=== PATIENT | male | born 1955 | race Caucasian/White ===

== ENCOUNTER → 2018-02-14 10:28 | Outpatient (CLI) | payer SELFPAY | PROVIDERS: PCP Family Medicine; Visit Provider Nurse Practitioner Family | DX: Z02.4 Encounter for examination for driving license (principal) ==

== ENCOUNTER → 2019-01-30 10:10 | Outpatient (CLI) | payer SELFPAY ==
[2019-01-30 11:12] LABS: Apearance,Urine Clear (Clear); Color,Urine Yellow (Yellow)
[2019-01-30 11:13] LABS: Bilirubin,Urine Negative (Negative); Blood, Urine Negative (Negative); Glucose,Urine (UA) Negative (Negative); Ketones,Urine Negative (Negative); PH,Urine 7.5 (5.0-8.5); Protein,Urine Negative (Negative); UTC Leukocyte Esterase,Urine Negative (Negative); UTC Nitrate,Urine Negative (Negative); Urobilinogen,Urine 0.2 EU/dl (0.2)
== END ==
PROVIDERS: PCP Family Medicine; Visit Provider Nurse Practitioner Family
DX: Z02.4 Encounter for examination for driving license (principal)
CPT/HCPCS: 81003

== ENCOUNTER → 2020-02-16 13:31 | Outpatient (CLI) | payer SELFPAY | PROVIDERS: PCP Family Medicine; Visit Provider Nurse Practitioner Family | DX: Z02.4 Encounter for examination for driving license (principal) ==

== ENCOUNTER → 2020-03-16 11:30 | Outpatient (CLI) | payer MEDICARE, OTHER, SELFPAY ==
--- NOTE | 2020-03-16 11:39 | XR_ITS ---
PROCEDURE: XR CHEST 2V CLINICAL HISTORY: HTN COMPARISON: CR CXR1 CHEST-PORTABLE from 04/24/2015 FINDINGS: The cardiomediastinal silhouette and pulmonary vascularity are within normal limits. The lungs are clear without infiltrates, suspicious nodules, or pleural effusions. No acute bony abnormalities. IMPRESSION: No acute findings. Dictated by: Chris Alas MD 03/16/2020 12:43 Chris Alas MD in [place] 03/16/2020 12:43
== END ==
PROVIDERS: PCP Family Medicine; Visit Provider Family Medicine
DX: Z01.818 Encounter for other preprocedural examination (principal)
CPT/HCPCS: 71046

== ENCOUNTER → 2020-07-09 11:14 | Outpatient (CLI) | payer MEDICARE, OTHER, SELFPAY ==
--- NOTE | 2020-07-09 11:24 | XR_ITS ---
PROCEDURE: XR KNEE RT 3V CLINICAL INDICATION: RT KNEE PAIN, POST KNEE REPLACEMENT COMPARISON: CR [id number] KNEE-4 OR 5 VIEWS-RT from 03/22/2016 DX [id number] KNEE-4 OR 5 VIEWS-RT from 02/06/2017 CR [id number] XR knee RT 3V from 02/05/2018 FINDINGS: Status post total knee replacement with good alignment. No evidence of orthopedic complication. No fracture or dislocation. Other findings:None. IMPRESSION: Good alignment status post total knee replacement Dictated by: Chris Alas MD 07/09/2020 12:59 Chris Alas MD in [place] 07/09/2020 12:59
--- NOTE | 2020-07-09 11:24 | XR_ITS ---
PROCEDURE: XR FEMUR RT 2V CLINICAL INDICATION: RT LEG PAIN COMPARISON: DX [id number] KNEE-4 OR 5 VIEWS-RT from 02/06/2017 FINDINGS: No fracture or dislocation. No lytic or blastic change. There is normal mineralization. There are moderate osteoarthritic changes of the right hip with loss of joint space superiorly and osteophyte formation of the acetabulum. There is mild osteosclerosis of the acetabular roof and femoral head. Other findings:A linear metallic density is present within the soft tissues in the medial and anterior aspect of the mid thigh. This measures approximately 16 mm. There has been a prior total knee prosthesis placement. IMPRESSION: Moderate to severe osteoarthritic changes of the right hip. Linear metallic foreign body in the mid and anterior aspect of the thigh medially Dictated by: Chris Alas MD 07/09/2020 12:57 Chris Alas MD in [place] 07/09/2020 12:57
== END ==
PROVIDERS: PCP Nurse Practitioner Family; Visit Provider Nurse Practitioner Family
DX: M79.604 Pain in right leg (principal); M25.561 Pain in right knee; Z96.651 Presence of right artificial knee joint
CPT/HCPCS: 73552; 73562

== ENCOUNTER → 2020-07-20 12:40 | Outpatient (CLI) | payer MEDICARE, OTHER, SELFPAY ==
--- NOTE | 2020-07-20 12:42 | MR_ITS ---
PROCEDURE: MR LUMBAR SPINE WO CON CLINICAL INDICATION: LUMBAR PAIN Intermittent lbp. Numbness and tingling down lt leg. Intermittent pain on lateral aspect of rt leg. Prior MRI 04/06/16. 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 3-D MIP and myelographic images are also rendered and reviewed FINDINGS: There is normal alignment. The spinal cord ends at the T12 level. T11-T12: Mild degenerative disc disease. T12-L1: Unremarkable. L1-L2: Unremarkable. L2-L3: Unremarkable. L3-L4: There is a medium-sized broad-based central left paracentral disc protrusion/herniation with mild superior extrusion. This is displacing the left L4 nerve root posteriorly and resulting in left lateral recess narrowing. Bulging disc is also present at this level with mild right and moderate left foraminal narrowing. The disc is also abutting the anterior medial aspect of the right L4 nerve root. L4-5: Mild bulging disc with mild facet and ligamentum hypertrophy. The disc does abut the anterior aspect of both L5 nerve roots without displacement. There is mild bilateral foraminal narrowing. Not significantly changed. L5-S1: Bulging disc eccentric toward the right with facet and ligamentum hypertrophy resulting in bilateral foraminal narrowing. 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 Not significantly changed. IMPRESSION: 1. L3-L4: There is a medium-sized broad-based central left paracentral disc protrusion/herniation with mild superior extrusion. This has developed since the previous exam. This is displacing the left L4 nerve root posteriorly and resulting in left lateral recess narrowing. Bulging disc is also present at this level with mild right and moderate left foraminal narrowing. The disc is also abutting the anterior medial aspect of the right L4 nerve root. 2. L4-5: Mild bulging disc with mild facet and ligamentum hypertrophy. The disc does abut the anterior aspect of both L5 nerve roots without displacement. There is mild bilateral foraminal narrowing. Not significantly changed. 3. L5-S1: Bulging disc eccentric toward the right with facet and ligamentum hypertrophy resulting in bilateral foraminal narrowing. 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 Not significantly changed Dictated by: Chris Alas MD 07/22/2020 10:34 Chris Alas MD in [place] 07/22/2020 10:34
== END ==
PROVIDERS: PCP Family Medicine; Visit Provider Orthopaedic Surgery
DX: M54.5 Low back pain (principal)
CPT/HCPCS: 72148; 76376

== ENCOUNTER 2020-08-16 10:00 | Outpatient (RCR) | payer MEDICARE, OTHER, SELFPAY | END 2020-09-16 13:00 | disposition home or self-care (01) | LOC: PT.CARL 10:00 | PROVIDERS: PCP Family Medicine; Visit Provider Orthopaedic Surgery | DX: M48.061 Spinal stenosis, lumbar region without neurogenic claudication (principal) | CPT/HCPCS: 97012; 97110; 97140; 97163 ==

== ENCOUNTER → 2020-12-07 14:57 | Outpatient (CLI) | payer MEDICARE, OTHER, SELFPAY ==
--- NOTE | 2020-12-07 14:59 | CT_ITS ---
PROCEDURE: CT HIP RT WO CON CLINICAL HISTORY: RT HIP PAIN COMPARISON: CT ABDPELW/O CT ABD PELVIS W/O CONTRAST from 06/21/2016 CR XR FEMUR RT 2V from 07/09/2020 TECHNIQUE: Axial images obtained with sagittal and coronal reformats. All CT scans at the facility use one or more dose reduction, viz: automated exposure control, ma/kV adjustment per patient size (including targeted exams where dose is matched to indication, i.e. head), or iterative reconstruction technique. FINDINGS: There are severe osteoarthritic changes of the right hip with subchondral cystic changes of the acetabular roof and the femoral head superiorly. There is minimal depression of the superior cortex of a prominent geode in the femoral head which measures 1.3 cm. Lateral osteophyte is noted at the acetabular rim. Osteophytes are also present at the femoral head/neck junction. There is minimal lateral subluxation of the femoral head. No acute femoral neck fracture apparent. No blastic lesions evident. Anterior bridging osteophytes are present at the right SI joint with fusion of the right SI joint along the anterior cortex. Incidental note is made of diverticulosis of the sigmoid colon IMPRESSION: Severe osteoarthritis of the right hip as described above with subchondral cystic changes Dictated by: Chris Alas MD 12/08/2020 10:23 Chris Alas MD in [place] 12/08/2020 10:23
== END ==
PROVIDERS: PCP Family Medicine; Visit Provider Family Medicine
DX: M25.551 Pain in right hip (principal)
CPT/HCPCS: 73700

== ENCOUNTER → 2021-03-24 13:19 | Outpatient (CLI) | payer MEDICARE, OTHER, SELFPAY | PROVIDERS: PCP Family Medicine; Visit Provider Nurse Practitioner Family | DX: Z02.4 Encounter for examination for driving license (principal) ==

== ENCOUNTER → 2021-04-21 09:25 | Outpatient (CLI) | payer MEDICARE, OTHER, SELFPAY ==
--- NOTE | 2021-04-21 09:29 | XR_ITS ---
FINAL REPORT CLINICAL HISTORY: hip pain, right hip pain -- 6 months or more COMPARISON: July 09, 2020 FINDINGS: Right hip with pelvis Three views were obtained. There is no acute fracture or dislocation. There are severe degenerative changes of the right hip with multiple subchondral cysts that have significantly progressed. There is chronic deformity of the right acetabulum with a possible chronic fracture superiorly. There is moderate degenerative change of the left hip. There is no acute soft tissue abnormality. IMPRESSION: Severe right hip degenerative change, significantly progressed. Chronic deformity of the right acetabulum with a possible chronic superior acetabular fracture. Reviewed, Interpreted and Dictated by Loco Chung III, MD Transcribed by Onesimo Owens Authenticated by Loco Chung III, MD on 04/21/2021 11:00:31 AM [facility]
[2021-04-21 12:08] LABS: Basophils # 0.2 K/mm3 (0-0.2); Basophils % 2.1 % (0.1-2.0); Eosinophils # 0.1 K/mm3 (0.0-0.4); Eosinophils % 1.9 % (0.1-12.0); Hematocrit 46.9 % (42.0-52.0); Hemoglobin 14.6 g/dL (14.1-18.0); Lymphocytes # 1.8 K/mm3 (0.7-4.5); Lymphocytes % 25.4 % (10-50); Mean Corpuscular HGB Conc 31.1 g/dL (31.8-35.4); Mean Corpuscular Hemoglobin 27.7 pg (27.0-31.2); Mean Corpuscular Volume 89.1 fl (80-94); Mean Platelet Volume 6.9 fl (7.4-10.4); Monocytes # 0.3 K/mm3 (0.1-1.0); Neutrophils # 4.8 K/mm3 (1.8-7.8); Neutrophils % 66.5 % (37.0-80.0); Platelet Count 323 K/mm3 (142-424); Red Blood Count 5.27 M/mm3 (4.60-6.20); Red Cell Distribution Width 14.3 % (11.5-17.5); White Blood Count 7.2 K/mm3 (4.8-10.8)
[2021-04-21 12:48] LABS: Erythrocyte Sedimentation Rate 15 mm/hr (0-20)
[2021-04-21 13:49] LABS: C-Reactive Protein 2.2 mg/L (0-4)
== END ==
PROVIDERS: PCP Family Medicine; Visit Provider Orthopaedic Surgery
DX: M25.561 Pain in right knee (principal)
CPT/HCPCS: 73502

== ENCOUNTER → 2021-04-21 11:51 | Outpatient (CLI) | payer MEDICARE, OTHER, SELFPAY ==
--- NOTE | 2021-04-21 11:58 | XR_ITS ---
FINAL REPORT CLINICAL HISTORY: 4 view WB sx 04/08/20 COMPARISON: 07/09/2020 FINDINGS: RIGHT KNEE Six views demonstrate no acute fracture or dislocation. There are postoperative changes from total knee arthroplasty. Inferior soft tissue calcifications are identified. IMPRESSION: Postsurgical change without acute process. Reviewed, Interpreted and Dictated by oLco Chung III, MD Transcribed by Ro Rebollar Authenticated by Loco Chung III, MD on 04/21/2021 12:47:35 PM [facility]
== END ==
PROVIDERS: PCP Family Medicine; Visit Provider Orthopaedic Surgery
DX: M25.561 Pain in right knee (principal)
CPT/HCPCS: 36415; 73502; 73564; 85025; 85651; 86140

== ENCOUNTER → 2021-05-23 10:30 | Outpatient (CLI) | payer MEDICARE, OTHER, SELFPAY ==
--- NOTE | 2021-05-23 10:43 | XR_ITS ---
FINAL REPORT TECHNIQUE: Chest PA & Lateral CLINICAL HISTORY: PRE-OP for hip sx COMPARISON: March 16, 2020 FINDINGS: 2 views of the chest were performed. The heart size is normal. The mediastinum is within normal limits. There is no acute cardiopulmonary process. There are mild chronic changes in the lung bases. There are no pleural effusions. There is no pneumothorax. The bony thorax appears intact. IMPRESSION: No acute cardiopulmonary process. Reviewed, Interpreted and Dictated by Mayo Smith MD Transcribed by Onesimo Owens Authenticated by Mayo Smith MD on 05/23/2021 01:15:[address] [facility]
== END ==
PROVIDERS: PCP Family Medicine; Visit Provider Nurse Practitioner Family
DX: Z01.818 Encounter for other preprocedural examination (principal)
CPT/HCPCS: 71046

== ENCOUNTER 2021-08-22 11:07 | Emergency (ER) | payer MEDICARE, OTHER, SELFPAY ==
[2021-08-22] VITALS (8 sets, daily range): BP systolic 110–161; BP diastolic 62–82; PULSE 55–66; RESP 16–20; TEMP 36.8–36.9; O2SAT 94–98; BMI 34.8
--- NOTE | 2021-08-22 11:59 | HMH.EDGENADL ---
ED Disposition Clinical Impression: Right hip pain Disposition: Home, Self-Care Condition on Discharge: Good Prescriptions: Lidocaine [Lidocaine 5% patch] 1 patch TP BID 7 Days #14 patch Transmission Status: Pending to [facility] Referrals: Mio Nuñez MD [Primary Care Provider] - - Critical Care Critical Care Time: No Attestation: On 08/22/21, the high probability of a clinically significant, sudden or life threatening deterioration of the following system(s) required my full and direct attention, intervention and personal management. The time I documented below is in addition to time spent performing reported procedures but includes the following listed in this critical care notation. Medical Decision Making - Medical Records Medical records reviewed: Yes: I reviewed the patient's medical records. - Grayson Inquiry Pt receiving controlled substance: No Vital Signs: 08/22/21 11:07 08/22/21 12:01 08/22/21 12:30 Temperature 98.2 F Temperature Source Oral Pulse Rate 58 L 55 L Pulse Rate [Left Radial] 65 Respiratory Rate 18 20 20 Blood Pressure 110/62 125/75 Blood Pressure [Right Arm] 161/72 H Blood Pressure Mean 81 82 Blood Pressure Mean [Right Arm] 101 Blood Pressure Source [Right Arm] Automatic Cuff Blood Pressure Position [Right Arm] Sitting 02 Sat by Pulse Oximetry 95 95 96 Oxygen Delivery Method Room Air 08/22/21 13:00 08/22/21 13:30 08/22/21 14:01 Temperature Temperature Source Pulse Rate 66 59 L 58 L Pulse Rate [Left Radial] Respiratory Rate 18 20 20 Blood Pressure 122/70 133/82 121/72 Blood Pressure [Right Arm] Blood Pressure Mean 87 96 88 Blood Pressure Mean [Right Arm] Blood Pressure Source [Right Arm] Blood Pressure Position [Right Arm] 02 Sat by Pulse Oximetry 95 96 Oxygen Delivery Method 08/22/21 14:30 Temperature Temperature Source Pulse Rate 59 L Pulse Rate [Left Radial] Respiratory Rate 20 Blood Pressure 114/71 Blood Pressure [Right Arm] Blood Pressure Mean 91 Blood Pressure Mean [Right Arm] Blood Pressure Source [Right Arm] Blood Pressure Position [Right Arm] 02 Sat by Pulse Oximetry 94 L Oxygen Delivery Method Orders (Tests/Meds): ED MEDICATIONS Discontinued Medications Generic Name Dose Route Start Last Admin Trade Name Freq PRN Reason Stop Dose Admin Ketorolac Tromethamine 15 mg 08/22/21 11:59 08/22/21 12:36 Ketorolac 30mg/Ml Vial IM 08/22/21 12:00 15 mg ONCE ONE Administration Lidocaine 1 each 08/22/21 11:58 08/22/21 12:36 Lidocaine 5% Transdermal Patch TP 08/22/21 11:59 1 each ONCE ONE Administration ORDERS Category Date Time Status XR hip RT 2-3V w/pelvis Stat Exams 08/22/21 12:56 Taken Medical Decision Narrative: Patient is a 66-year-old male presented to the ED today for evaluation of right thigh and hip pain, some present since of surgery, not worsening, denies fevers, is ambulatory on the hip, low concern for infection given my clinical examination, will obtain x-rays of the right hip, apply lidocaine patch. Patient has had symptomatic improvement after lidocaine patch administration, no symptoms of fever, no tachycardia, no hypotension, no vital signs consistent with sepsis or right hip infection, x-rays with no significant abnormalities detected. Patient able to ambulate, symptomatically improved and lidocaine patch I will prescribe him to take at home as he already has opiate pain medications. Patient otherwise in no acute distress, given return precautions, I have instructed him that is important to follow-up with his operating surgeon if he is still having pain this far out from surgery, they do appear to have been following him closely in clinic. General Adult HPI - General Chief complaint: PAIN Stated complaint: hip replacement 07/08, pain Time Seen by Provider: 08/22/21 11:15 Mode of Arrival: Ambulatory Limitations: No Limitations Descrip
--- NOTE | 2021-08-22 12:56 | XR_ITS ---
FINAL REPORT CLINICAL HISTORY: hip pain right-had right hip replaced in July with [facility]- pt states was doing well and now it feels like it pops out of place COMPARISON: April 21, 2021 FINDINGS: AP and frog leg views of the right hip and an AP pelvis were obtained. There are interval changes from right hip arthroplasty. The hardware appears intact. There is no acute fracture or dislocation. There is degenerative joint disease of the left hip, stable. IMPRESSION: No acute osseous abnormality of the right hip. Interval right hip arthroplasty. Reviewed, Interpreted and Dictated by Nilam Nunez MD Transcribed by Onesimo Owens Authenticated by Nilam Nunez MD on 08/22/2021 03:14:58 PM [facility]
== END 2021-08-22 15:21 | disposition home or self-care (01) ==
PROVIDERS: Emergency Provider Student in an Organized Health Care Education/Training Program; PCP Family Medicine
DX: M25.551 Pain in right hip (principal); I10 Essential (primary) hypertension; E78.5 Hyperlipidemia, unspecified
CPT/HCPCS: 73502; 96372; 99283

== ENCOUNTER → 2021-12-28 10:55 | Outpatient (POV) | payer MEDICARE, OTHER, SELFPAY ==
[2021-12-28 11:26] VITALS: BP 166/80; PULSE 71; RESP 18; TEMP 36.8; O2SAT 95; BMI 34.8
--- NOTE | 2021-12-28 16:52 | EXP.PAIN.OV ---
HPI Data of Consult Patient: new to practice Consult date: 12/28/21 Requesting Physician: Lissy Ashraf APRN Primary Care Provider: Mio Nuñez MD Consult Narrative Reason for consult: Low back pain, right leg pain History of present illness: Mr. Valdivia is a 66 year old male who presents today as a new patient. Today he rates his pain a 5 out of 10. He states his pain is all in his low back with radiating symptoms only to the right leg. Patient denies any trauma but states this has been going on since his right hip replacement in July and it has worsened since. He describes this as a aching, sharp, throbbing sensation that often has shooting pain at random times. Patient states he did have back injections previously at [facility] however he is unsure specifically what injections they were. He is also had right knee injections prior to his right knee replacement. These injections did provide improvement of his symptoms at that time. He also was having laser therapy for his hip that did help however his insurance would not cover these and he had to drive to [place] every time. Patient has been on diclofenac twice a day and states this does help some of his pain symptoms. He also has tried [id number] Tylenol. Patient has also been managed with muscle relaxers in the past that he only took 1 a day. Patient is prescribed tramadol 50 mg twice a day by Dr. Montgomery's office. Patient denies any side effects from this medication and states this medication does help some of his pain symptoms. Patient is also tried ice and heat with short-term relief. Patient has been to physical therapy that did help some with his hip pain following surgery however he continues to have pain in his low back. He does see a chiropractor that previously he was going to twice a week however now it is once a week and this does help provide additional improvement. Patient states his sleep is sometimes affected with his pain symptoms due to the random shooting pains that wake him up in the middle of the night. He is interested in any additional therapy we can provide to give relief. His Grayson is [phone]. It has been reviewed and appropriate. CC: Lissy Ashraf APRN PFSH PFSH Social History Smoking Status: Unknown if ever smoked alcohol intake: never current occupational status: retired Travel in the last 8 weeks: None Review of Systems Review of Systems Review of systems:: pertinent systems reviewed and negative unless documented below Review of systems (narrative): Review of Systems: General: No recent weight changes, no fever, no sleep disturbances Respiratory: No cough, no shortness of air, no recurring pulmonary infections Cardiovascular/peripheral vascular: No chest pain, no palpitations, no edema, no shortness of breath Gastrointestinal: No new onset incontinence, normal bowel movements reported Genitourinary: No new onset incontinence Musculoskeletal: Low back pain, right leg pain Psychiatric: [Normal mood/affect] Neurological: [Denies weakness in extremities], [denies balance issues] Meds Home Medications and Allergies Home Medications Medication Instructions Recorded Confirmed Type amlodipine 10 mg tablet 10 mg PO DAILY HTN 08/05/17 12/28/21 History celecoxib 200 mg capsule 200 mg PO DAILY Arthritis 08/05/17 12/28/21 History losartan 25 mg tablet 25 mg PO DAILY HTN 08/05/17 12/28/21 History potassium citrate m-hyd(bulk) 1,080 mg PO QID Kidney stones 08/05/17 12/28/21 History colchicine 0.6 mg tablet 0.6 mg PO DIRECTED GOUT 12/28/21 12/28/21 History diclofenac sodium 1 % topical gel 1 applicatio TP QID Pain 12/28/21 12/28/21 History lidocaine 5 % topical patch 1 patch TP BID Pain 12/28/21 12/28/21 History New Prescriptions to Start Prescriptions: Allergies Allergy/AdvReac Type Severity Reaction Status Date / Time No Known Allergies Allergy Verified 04/21/21 11:47 Objective Vital signs: Temp
== END ==
PROVIDERS: PCP Family Medicine; Visit Provider Nurse Practitioner Family
DX: M51.16 Intervertebral disc disorders with radiculopathy, lumbar region (principal); M47.26 Other spondylosis with radiculopathy, lumbar region
CPT/HCPCS: 99202; G0463

== ENCOUNTER 2022-01-10 08:48 | Day surgery (SDC) | payer MEDICARE, OTHER, SELFPAY ==
[2022-01-10 09:00] VITALS: BP 130/78; PULSE 70; RESP 18; TEMP 36.7; O2SAT 97; BMI 34.8
[2022-01-10 09:27] VITALS: BP 171/78; PULSE 67; RESP 18; O2SAT 99
[2022-01-10 09:28] VITALS: BP 158/89; PULSE 64; RESP 18; O2SAT 99
[2022-01-10 09:32] VITALS: BP 149/77; PULSE 66; RESP 20; O2SAT 94
--- NOTE | 2022-01-10 09:34 | EXP.PAIN.PRO ---
Procedure Date: 01/10/22 Time: 09:34 Anesthesiologist:: Daniel Rosen CRNA Complications:: None Pre-procedure Diagnosis:: Degenerative disc disease bar spine multilevels. Lumbar radiculopathy symptoms Post-procedure Diagnosis:: Same. Indications for Procedure:: Very pleasant 66-year-old male that comes our clinic today for a lumbar epidural steroid injection at the L4-5 level. Patient describes his low back pain as constant, dull, aching. Patient also states he is having bilateral hip and leg radicular symptoms. All of his symptoms intensify with standing for any length of time. Patient has had epidural steroid injections in the past at a different facility. Procedure Details:: Procedure: Lumbar epidural steroid injection under fluoroscopy Informed consent was obtained and the risks and benefits of the procedure were explained to the patient. The patient was taken to the procedure room and noninvasive monitors placed, including noninvasive blood pressure cuff and pulse oximeter. The back was viewed using C-arm Fluoroscopy and prepped using Betadine as a cleansing solution and the L4-L5 interspace was palpated. Skin and subcutaneous tissues were anesthetized using lidocaine 1.5% and a 25-gauge needle. After this, an 18-gauge Touhy epidural needle was placed into the L4-L5 interspace and advanced using fluoroscopic guidance and loss of resistance to air until the epidural space was encountered. After confirmation of needle placement in the epidural space, with dye, a solution containing lidocaine 1.5%, 4 mL and Depo-Medrol 80 mg were incrementally injected into the lumbar epidural space. The patient tolerated the procedure well with no complications. The patient was observed in the Pain Clinic and then discharged home neurologically intact. Plan and Disposition:: Patient was discharged without incident
== END 2022-01-10 09:33 | disposition home or self-care (01) ==
PROVIDERS: PCP Family Medicine; Visit Provider Nurse Anesthetist, Certified Registered
DX: M51.16 Intervertebral disc disorders with radiculopathy, lumbar region (principal)
CPT/HCPCS: 62323; J1040

== ENCOUNTER → 2022-03-30 11:39 | Outpatient (POV) | payer MEDICARE, OTHER, SELFPAY ==
[2022-03-30 11:54] VITALS: BP 138/80; PULSE 72; RESP 18; O2SAT 99; BMI 35.4
--- NOTE | 2022-03-30 12:42 | EXP.PAIN.SOA ---
[facility] Pain Management SOAP Note Subjective:: Patient is a pleasant 66-year-old male who presents today for follow-up. We are currently treating the patient for degenerative disc disease of lumbar spine with lumbar radiculopathy symptoms, low back pain, facet hypertrophy lumbar spine. Patient previously had a lumbar epidural steroid injection at L4-L5 on 01/10/2022. Patient states that he did have approximately 60 to 70% relief at least and lasting approximately 2 months. 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 Today he rates his pain a 4 out of 10. Patient denies any new trauma or injury. Patient denies any change to location or type of pain he experiences. Patient does state this is a aching, sharp, throbbing sensation that is worse with increased activity. Patient does state this interferes with his ability to perform activities of daily living. Patient does use [id number] Tylenol as needed to help with his pain symptoms along with heat and ice. Patient has been going to a chiropractor weekly and states this does provide additional improvement. His Grayson is [phone]. It is been reviewed and approved. Review of Systems: General: No recent weight changes, no fever, no sleep disturbances Respiratory: No cough, no shortness of air, no recurring pulmonary infections Cardiovascular/peripheral vascular: No chest pain, no palpitations, no edema, no shortness of breath Gastrointestinal: No new onset incontinence, normal bowel movements reported Genitourinary: No new onset incontinence Musculoskeletal: Low back pain Psychiatric: [Normal mood/affect] Neurological: [Denies weakness in extremities], [denies balance issues] Objective:: Physical Exam: General: Alert and oriented x3, no acute distress, pleasant and cooperative Lungs: Respirations even and unlabored, symmetrical chest expansion Eyes: PERRL Musculoskeletal: Flexion and extension of lumbar [spine] somewhat guarded secondary to pain, [antalgic gait noted] Neurological: Speech clear, no gross sensory deficit Assessment:: Degenerative disc disease of lumbar spine with lumbar radiculopathy symptoms, low back pain, facet hypertrophic lumbar spine Plan:: Patient is experiencing significant pain in his low back with radiating symptoms into his lower extremities. Patient did have limited range of motion of his lumbar spine during today's visit. I have discussed with the patient that he may benefit from repeat lumbar epidural steroid injections. Patient previously had 1 that provided 70% relief lasting approximately 2 months. Risk and benefits were discussed with the patient regarding this procedure and he would like to proceed forward with this plan of care. Patient is not on any blood thinners. We will schedule him for a LESI L4-L5. Patient has been instructed to contact the clinic with any concerns before the next appointment. Dr. Blancas has reviewed this note and agrees with this plan of care. This note was dictated using voice recognition software and make contain errors or omissions. [facility] Disclaimer: The information contained in this section may have been updated after the patient was seen, as this information can be updated by other users. Medical History (Updated 01/10/22 @ 09:05 by Caitlyn Schmid RN) Kidney stone Surgical History (Updated 01/10/22 @ 09:05 by Caitlyn Schmid RN) History of cholecystectomy History of total right hip replacement History of total right knee replacement Social History (Updated 01/10/22 @ 09:05 by Caitlyn Schmid RN) Smoking Status: Unknown if ever smoked alcohol intake: never current occupational status: retired Travel in the last 8 weeks: None
== END ==
PROVIDERS: PCP Family Medicine; Visit Provider Nurse Practitioner Family
DX: M51.16 Intervertebral disc disorders with radiculopathy, lumbar region (principal); Z79.899 Other long term (current) drug therapy
CPT/HCPCS: 99212; G0463

== ENCOUNTER → 2022-04-06 09:37 | Outpatient (CLI) | payer MEDICARE, OTHER, SELFPAY | PROVIDERS: PCP Family Medicine; Visit Provider Nurse Practitioner Family | DX: Z02.4 Encounter for examination for driving license (principal) ==

== ENCOUNTER 2022-04-11 09:05 | Day surgery (SDC) | payer MEDICARE, OTHER, SELFPAY ==
[2022-04-11 09:22] VITALS: BP 173/79; PULSE 70; RESP 18; TEMP 36.4; O2SAT 92; BMI 36.9
[2022-04-11 09:27] VITALS: BP 169/80; PULSE 68; RESP 18; O2SAT 98
[2022-04-11 09:28] VITALS: BP 169/80; PULSE 68; RESP 18; O2SAT 98
[2022-04-11 09:35] VITALS: BP 167/74; PULSE 73; RESP 18; O2SAT 92
--- NOTE | 2022-04-11 09:36 | EXP.PAIN.PRO ---
Procedure Date: 04/11/22 Time: 09:30 Anesthesiologist:: Daniel Rosen CRNA Complications:: None Pre-procedure Diagnosis:: Degenerative disc disease lumbar spine multilevels. Lumbar radiculopathy. Post-procedure Diagnosis:: Same. Indications for Procedure:: Patient is a very pleasant 58-year-old male that comes to our clinic today for lumbar epidural steroid injection. This will be a therapeutic lumbar epidural steroid injection. Patient has these several times per year with significant improvement terms of his overall activity level. An occasional lumbar epidural steroid injection decreases his low back pain as well as bilateral hip and leg radicular symptoms significantly. Today he rates his pain 5/10. Procedure Details:: Procedure: Lumbar epidural steroid injection under fluoroscopy Informed consent was obtained and the risks and benefits of the procedure were explained to the patient. The patient was taken to the procedure room and noninvasive monitors placed, including noninvasive blood pressure cuff and pulse oximeter. The back was viewed using C-arm Fluoroscopy and prepped using Chloraprep as a cleansing solution and the L4-L5 interspace was palpated. Skin and subcutaneous tissues were anesthetized using lidocaine 1.5% and a 25-gauge needle. After this, an 18-gauge Touhy epidural needle was placed into the L4-L5 interspace and advanced using fluoroscopic guidance and loss of resistance to air until the epidural space was encountered. After confirmation of needle placement in the epidural space, with dye, a solution containing normal saline, 3 mL and Depo-Medrol 80 mg were incrementally injected into the lumbar epidural space. The patient tolerated the procedure well with no complications. The patient was observed in the Pain Clinic and then discharged home neurologically intact. Plan and Disposition:: Patient was discharged without incident.
== END 2022-04-11 09:35 | disposition home or self-care (01) ==
PROVIDERS: PCP Family Medicine; Visit Provider Nurse Anesthetist, Certified Registered
DX: M51.16 Intervertebral disc disorders with radiculopathy, lumbar region (principal)
CPT/HCPCS: 62323; J1040

== ENCOUNTER → 2022-04-24 11:14 | Outpatient (POV) | payer MEDICARE, OTHER, SELFPAY ==
--- NOTE | 2022-04-24 11:21 | EXP.PAIN.SOA ---
[facility] Pain Management SOAP Note Subjective:: Patient is a pleasant 66-year-old male who presents today for follow-up of lumbar epidural steroid injection at L4-L5 on 04/11/2022. We are currently treating the patient for degenerative disc disease of lumbar spine with lumbar radiculopathy symptoms. Patient states he has had at least 70% improvement following this injection and states that it is continuing to provide additional relief. Patient rates his pain today a 2 out of 10. Patient denies any new trauma or injury. Patient denies any change to location or type of pain he experiences. Patient states in times of increased activity he will occasionally have worsening pain symptoms however he states with rest this does improve. Patient is not currently on any scheduled medications. His Grayson is [id number]. Its been reviewed and appropriate. Review of Systems: General: No recent weight changes, no fever, no sleep disturbances Respiratory: No cough, no shortness of air, no recurring pulmonary infections Cardiovascular/peripheral vascular: No chest pain, no palpitations, no edema, no shortness of breath Gastrointestinal: No new onset incontinence, normal bowel movements reported Genitourinary: No new onset incontinence Musculoskeletal: Low back pain Psychiatric: [Normal mood/affect] Neurological: [Denies weakness in extremities], [denies balance issues] Objective:: Physical Exam: General: Alert and oriented x3, no acute distress, pleasant and cooperative Lungs: Respirations even and unlabored, symmetrical chest expansion Eyes: PERRL Musculoskeletal: Flexion and extension of lumbar [spine] somewhat guarded secondary to pain, [antalgic gait noted] Neurological: Speech clear, no gross sensory deficit ORT score updated with low risk Assessment:: Degenerative disc disease of lumbar spine with lumbar radiculopathy symptoms Plan:: Patient has had significant improvement of his pain symptoms in his low back and radiating into his legs following his lumbar epidural steroid injection. At this time the patient does not need any additional injective therapy. Patient will return to clinic in 1 month for reevaluation of symptoms and follow-up. Patient has been instructed to contact the clinic with any concerns before the next appointment. Dr. Blancas has reviewed this note and agrees with this plan of care. This note was dictated using voice recognition software and make contain errors or omissions. [facility] Disclaimer: The information contained in this section may have been updated after the patient was seen, as this information can be updated by other users. Medical History Kidney stone Surgical History History of cholecystectomy History of total right hip replacement History of total right knee replacement Family History (Updated 04/11/22 @ 09:22 by Breanna Cabral RN) Other No significant family history Social History Smoking Status: Unknown if ever smoked alcohol intake: never current occupational status: retired Travel in the last 8 weeks: None
[2022-04-24 11:25] VITALS: BP 143/75; PULSE 71; RESP 18; O2SAT 97; BMI 34.8
== END ==
PROVIDERS: PCP Thoracic Surgery (Cardiothoracic Vascular Surgery); Visit Provider Nurse Practitioner Family
DX: M51.16 Intervertebral disc disorders with radiculopathy, lumbar region (principal)
CPT/HCPCS: 99212; G0463

== ENCOUNTER → 2022-05-29 09:40 | Outpatient (POV) | payer MEDICARE, OTHER, SELFPAY ==
--- NOTE | 2022-05-29 10:22 | EXP.PAIN.SOA ---
[facility] Pain Management SOAP Note Subjective:: Patient is a pleasant 66-year-old male who presents today for follow-up. We are currently treating the patient for degenerative disc disease of lumbar spine with lumbar radiculopathy symptoms. Today the patient rates his pain a 2 out of 10. Patient denies any new trauma or injury. Patient denies any change location or type of pain he experiences. Patient previously had a lumbar epidural steroid injection at L4-L5 on 04/11/2022. Patient did have approximately 70% relief following this injection and feels like it may still be providing additional relief. Patient does state that he has trouble with his left knee and hip as well. Patient states that he does know that he needs a hip replacement however he did not have the best success with the last hip replacement that he had and so he does have hesitation for proceeding forward with this surgery. Patient is not on any scheduled medications at this time. He states he does occasionally take Tylenol 650 mg 2 tablets in the morning and occasionally will repeat this at night however this is more frequently when he is having significant pain. His Grayson is [phone]. Its been reviewed and appropriate. Review of Systems: General: No recent weight changes, no fever, no sleep disturbances Respiratory: No cough, no shortness of air, no recurring pulmonary infections Cardiovascular/peripheral vascular: No chest pain, no palpitations, no edema, no shortness of breath Gastrointestinal: No new onset incontinence, normal bowel movements reported Genitourinary: No new onset incontinence Musculoskeletal: Low back pain, left knee pain, hip pain Psychiatric: [Normal mood/affect] Neurological: [Denies weakness in extremities], [denies balance issues] Objective:: Physical Exam: General: Alert and oriented x3, no acute distress, pleasant and cooperative Lungs: Respirations even and unlabored, symmetrical chest expansion Eyes: PERRL Musculoskeletal: Flexion and extension of lumbar [spine] somewhat guarded secondary to pain, [antalgic gait noted] Neurological: Speech clear, no gross sensory deficit Assessment:: Degenerative disc disease of lumbar spine with lumbar radiculopathy symptoms, left knee pain, hip pain Plan:: Patient continues to do well at this time from his last lumbar epidural steroid injection and does not require any additional injective therapy. I have discussed with the patient that he may benefit from compounding cream however at this time he would like to wait. Patient will return to clinic in 3 months for reevaluation of symptoms and plan of care. Patient has been instructed to contact the clinic with any concerns before the next appointment. Dr. Blancas has reviewed this note and agrees with this plan of care. This note was dictated using voice recognition software and make contain errors or omissions. [facility] Disclaimer: The information contained in this section may have been updated after the patient was seen, as this information can be updated by other users. Medical History Kidney stone Surgical History (Reviewed 04/11/22 @ :22 by Breanna Cabral RN) History of cholecystectomy History of total right hip replacement History of total right knee replacement Family History (Updated 04/11/22 @ 09:22 by Breanna Cabral RN) Other No significant family history Social History Smoking Status: Unknown if ever smoked alcohol intake: never current occupational status: retired Travel in the last 8 weeks: None
[2022-05-29 10:32] VITALS: BP 136/76; PULSE 70; RESP 18; O2SAT 98; BMI 35.5
== END ==
PROVIDERS: PCP Family Medicine; Visit Provider Nurse Practitioner Family
DX: M51.16 Intervertebral disc disorders with radiculopathy, lumbar region (principal); M25.562 Pain in left knee; M25.559 Pain in unspecified hip
CPT/HCPCS: 99212; G0463

== ENCOUNTER → 2022-08-21 09:51 | Outpatient (POV) | payer MEDICARE, OTHER, SELFPAY ==
--- NOTE | 2022-08-21 10:30 | EXP.PAIN.SOA ---
[facility] Pain Management SOAP Note Subjective:: Patient is a pleasant 67-year-old male who presents today for 3-month follow-up. We are currently treating the patient for degenerative disc disease of lumbar spine with lumbar radiculopathy symptoms. Today he rates his pain a 5 out of 10. Patient denies any new trauma or injury. Patient denies any change location or type of pain he experiences. He does state that he recently over the last month or so he has had worsening pain in his low back along the left side with radiating symptoms into his left hip and down his foot. He does describe this as an aching, throbbing sensation with numbness. He states the pain is worse with increased activity. He does state the pain interferes with his ability perform activities of daily living such as cooking and cleaning. Patient denies any symptoms into his right leg. Patient has tried [id number] Tylenol along with heat and ice and topicals with minimal relief. Patient has had lumbar epidurals in the past that did provide upwards of 70% relief. Patient is interested in any additional help we may provide. He is not on any scheduled medications. His Grayson is [phone]. Its been reviewed and appropriate. Review of Systems: General: No recent weight changes, no fever, no sleep disturbances Respiratory: No cough, no shortness of air, no recurring pulmonary infections Cardiovascular/peripheral vascular: No chest pain, no palpitations, no edema, no shortness of breath Gastrointestinal: No new onset incontinence, normal bowel movements reported Genitourinary: No new onset incontinence Musculoskeletal: Low back pain, left hip pain, left foot pain Psychiatric: [Normal mood/affect] Neurological: [Denies weakness in extremities], [denies balance issues] Objective:: Physical Exam: General: Alert and oriented x3, no acute distress, pleasant and cooperative Lungs: Respirations even and unlabored, symmetrical chest expansion Eyes: PERRL Musculoskeletal: Flexion and extension of lumbar [spine] somewhat guarded secondary to pain, [antalgic gait noted] Neurological: Speech clear, no gross sensory deficit FINDINGS: There is normal alignment. The spinal cord ends at the T12 level. T11-T12: Mild degenerative disc disease. T12-L1: Unremarkable. L1-L2: Unremarkable. L2-L3: Unremarkable. L3-L4: There is a medium-sized broad-based central left paracentral disc protrusion/herniation with mild superior extrusion. This is displacing the left L4 nerve root posteriorly and resulting in left lateral recess narrowing. Bulging disc is also present at this level with mild right and moderate left foraminal narrowing. The disc is also abutting the anterior medial aspect of the right L4 nerve root.? L4-5: Mild bulging disc with mild facet and ligamentum hypertrophy. The disc does abut the anterior aspect of both L5 nerve roots without displacement. There is mild bilateral foraminal narrowing. Not significantly changed. L5-S1: Bulging disc eccentric toward the right with facet and ligamentum hypertrophy resulting in bilateral foraminal narrowing. 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 Not significantly changed. IMPRESSION: 1. L3-L4: There is a medium-sized broad-based central left paracentral disc protrusion/herniation with mild superior extrusion. This has developed since the previous exam. This is displacing the left L4 nerve root posteriorly and resulting in left lateral recess narrowing. Bulging disc is also present at this level with mild right and moderate left foraminal narrowing. The disc is also abutting the anterior medial aspect of the right L4 nerve root. 2. L4-5: Mild bulging disc with mild facet and ligamentum hypertrophy. The disc does abut the anterior aspect of both L5 nerve roots without displacement. There is mild bilateral foraminal narrowing. Not significantly changed. 3. L5-S1: Bulging disc eccentric toward the right with facet an
[2022-08-21 11:04] VITALS: BP 156/72; PULSE 69; RESP 18; O2SAT 97; BMI 35.5
== END ==
PROVIDERS: Visit Provider Nurse Practitioner Family
DX: M51.16 Intervertebral disc disorders with radiculopathy, lumbar region (principal)
CPT/HCPCS: 99212; G0463

== ENCOUNTER 2022-08-29 11:40 | Day surgery (SDC) | payer MEDICARE, OTHER, SELFPAY ==
[2022-08-29 11:53] VITALS: BP 148/80; PULSE 81; RESP 20; TEMP 36.5; O2SAT 94; BMI 35.5
[2022-08-29 12:01] VITALS: BP 170/83; PULSE 75; RESP 18; O2SAT 97
[2022-08-29 12:02] VITALS: BP 170/83; PULSE 75; RESP 18; O2SAT 97
[2022-08-29 12:10] VITALS: BP 144/71; PULSE 69; RESP 18; O2SAT 94
--- NOTE | 2022-08-29 12:10 | EXP.PAIN.PRO ---
Procedure Date: 08/29/22 Time: 12:00 Anesthesiologist:: Daniel Rosen CRNA Complications:: None Pre-procedure Diagnosis:: Degenerative disc lumbar spine multilevels. Lumbar radiculopathy. Disc bulge lumbar spine multilevel. Lumbar spondylosis Post-procedure Diagnosis:: Same. Indications for Procedure:: Patient is a very pleasant 67-year-old male that comes our clinic today for left L4-5, L5-S1 transforaminal epidural steroid injection. Patient complains of left low lumbar pain as well as left hip and leg radicular symptoms. Procedure Details:: Details of the procedure were explained to the patient. The patient was taken the procedure room placed in the prone position. The area of the lumbar spine was cleansed using chlorhexidine as a cleansing solution. At this time using fluoroscopy guidance markers were placed on the left lateral border of the L4 and L5 vertebral body. The skin and subcutaneous tissue was anesthetized using 1% lidocaine and 25-gauge needle. At this time using a 22-gauge 3-1/2 inch spinal needle the left upper one third of the L4-5 foramen was accessed. The same was done at the left L5-S1 foramen. Needle positions were confirmed and a lateral view using fluoroscopy and contrast dye. At this time 1 cc of 1% lidocaine +20 mg of Depo-Medrol was injected at each level after negative aspiration. Melrose were removed. Band-Aid applied. Patient tolerated the procedure without difficulty. There are no complications. Plan and Disposition:: Patient was discharged without incident.
== END 2022-08-29 12:10 | disposition home or self-care (01) ==
PROVIDERS: PCP Family Medicine; Visit Provider Nurse Anesthetist, Certified Registered
DX: M51.16 Intervertebral disc disorders with radiculopathy, lumbar region (principal); M47.26 Other spondylosis with radiculopathy, lumbar region
CPT/HCPCS: 64483; 64484; J1030; Q9966

== ENCOUNTER → 2022-09-13 13:24 | Outpatient (POV) | payer MEDICARE, OTHER, SELFPAY ==
--- NOTE | 2022-09-13 13:50 | EXP.PAIN.SOA ---
[facility] Pain Management SOAP Note Subjective:: Patient is a pleasant 67-year-old male who presents today for follow-up of left transforaminal epidural steroid injection L4-L5 and L5-S1 on 08/29/2022. We are currently treating the patient for degenerative disc disease of lumbar spine with lumbar radiculopathy symptoms. Today he rates his pain a 4 out of 10. Patient denies any new trauma or injury. Patient denies any change to location or type of pain he experiences. He does state that he does not feel like this injection worked as well as his previous ones. Patient states he continues to have pain in his low back with radiating symptoms into his left lower extremity. Patient does use [id number] medications with minimal improvement. His Grayson is [phone]. Its been reviewed and appropriate. Review of Systems: General: No recent weight changes, no fever, no sleep disturbances Respiratory: No cough, no shortness of air, no recurring pulmonary infections Cardiovascular/peripheral vascular: No chest pain, no palpitations, no edema, no shortness of breath Gastrointestinal: No new onset incontinence, normal bowel movements reported Genitourinary: No new onset incontinence Musculoskeletal: Low back pain, left leg pain Psychiatric: [Normal mood/affect] Neurological: [Denies weakness in extremities], [denies balance issues] Objective:: Physical Exam: General: Alert and oriented x3, no acute distress, pleasant and cooperative Lungs: Respirations even and unlabored, symmetrical chest expansion Eyes: PERRL Musculoskeletal: Flexion and extension of lumbar [spine] somewhat guarded secondary to pain, [antalgic gait noted] Neurological: Speech clear, no gross sensory deficit Assessment:: Degenerative disc disease of lumbar spine with lumbar radiculopathy symptoms Plan:: Patient continues to have significant pain in his low back with radiating symptoms into his left leg. I have discussed with the patient that he may benefit from a repeat transforaminal epidural however at this time he states it is manageable and he would like to wait. We will follow-up with the patient in 1 month for reevaluation of symptoms and plan of care. Patient has been instructed to contact the clinic with any concerns before the next appointment. Dr. Blancas has reviewed this note and agrees with this plan of care. This note was dictated using voice recognition software and make contain errors or omissions. [facility] Disclaimer: The information contained in this section may have been updated after the patient was seen, as this information can be updated by other users. Medical History Kidney stone Surgical History History of cholecystectomy History of total right hip replacement History of total right knee replacement Family History Other No significant family history Social History Smoking Status: Unknown if ever smoked alcohol intake: never current occupational status: retired Travel in the last 8 weeks: None
[2022-09-13 15:23] VITALS: BP 137/73; PULSE 68; RESP 18; O2SAT 93; BMI 35.5
== END ==
PROVIDERS: PCP Family Medicine; Visit Provider Nurse Practitioner Family
DX: M51.16 Intervertebral disc disorders with radiculopathy, lumbar region (principal)
CPT/HCPCS: 99212; G0463

== ENCOUNTER → 2022-11-20 11:03 | Outpatient (POV) | payer MEDICARE, OTHER, SELFPAY ==
--- NOTE | 2022-11-20 12:03 | EXP.PAIN.SOA ---
[facility] Pain Management SOAP Note Subjective:: Patient is a pleasant 67-year-old male who presents today for follow-up. We are currently treating the patient for degenerative disc disease of lumbar spine with lumbar radiculopathy symptoms. Today he rates his pain a 6 out of 10. Patient denies any new trauma or injury. He states he continues to have low back pain as well as left hip pain that radiates into his lower extremities. He does describe this as an aching, throbbing sensation that is worse with increased activity. It does interfere with his ability perform activities of daily living such as cooking or cleaning. Patient previously has had lumbar epidurals that provided significant improvement of at least 50%. Patient did state during the time when the injections were helping he did feel that his function had improved on a daily basis. Patient does state that he is seeing [facility] for his left hip pain and that he knows this also needs to be replaced however he is trying to postpone it as long as possible. Patient is not on any scheduled medications. His Grayson is [phone]. Its been reviewed and appropriate. Review of Systems: General: No recent weight changes, no fever, no sleep disturbances Respiratory: No cough, no shortness of air, no recurring pulmonary infections Cardiovascular/peripheral vascular: No chest pain, no palpitations, no edema, no shortness of breath Gastrointestinal: No new onset incontinence, normal bowel movements reported Genitourinary: No new onset incontinence Musculoskeletal: Low back pain, bilateral leg pain Psychiatric: [Normal mood/affect] Neurological: [Denies weakness in extremities], [denies balance issues] Objective:: Physical Exam: General: Alert and oriented x3, no acute distress, pleasant and cooperative Lungs: Respirations even and unlabored, symmetrical chest expansion Eyes: PERRL Musculoskeletal: Flexion and extension of lumbar [spine] somewhat guarded secondary to pain, [antalgic gait noted] Neurological: Speech clear, no gross sensory deficit Assessment:: Degenerative disc disease of lumbar spine with lumbar radiculopathy symptoms Plan:: Patient is experiencing significant pain in his low back with radiating symptoms into his lower extremities. I have discussed with the patient that he may benefit from a lumbar epidural steroid injection. Risk and benefits were explained to the patient and he would like to proceed forward with this plan of care. Patient has previously had lumbar epidurals that did provide more than 50% improvement. Patient is not on any blood thinners. We will schedule the patient for an LESI L4-L5. Patient has been instructed to contact the clinic with any concerns before the next appointment. Dr. Blancas has reviewed this note and agrees with this plan of care. This note was dictated using voice recognition software and make contain errors or omissions. [facility] Disclaimer: The information contained in this section may have been updated after the patient was seen, as this information can be updated by other users. Medical History Kidney stone Surgical History History of cholecystectomy History of total right hip replacement History of total right knee replacement Family History Other No significant family history Social History Smoking Status: Unknown if ever smoked alcohol intake: never current occupational status: retired Travel in the last 8 weeks: None
[2022-11-20 12:40] VITALS: BP 126/99; PULSE 67; RESP 19; O2SAT 95; BMI 35.4
== END ==
PROVIDERS: Visit Provider Nurse Practitioner Family
DX: M51.16 Intervertebral disc disorders with radiculopathy, lumbar region (principal)
CPT/HCPCS: 99212; G0463

== ENCOUNTER → 2022-11-28 11:33 | Day surgery (SDC) | payer MEDICARE, OTHER, SELFPAY ==
[2022-11-28 11:41] VITALS: BP 164/83; PULSE 73; RESP 22; TEMP 36.7; O2SAT 96; BMI 34.8
[2022-11-28 11:45] VITALS: BP 153/68; PULSE 68; RESP 18; O2SAT 98
[2022-11-28 11:46] VITALS: BP 153/68; PULSE 68; RESP 18; O2SAT 98
--- NOTE | 2022-11-28 11:52 | EXP.PAIN.PRO ---
Procedure Date: 11/28/22 Time: 11:40 Anesthesiologist:: Daniel Rosen CRNA Complications:: None Pre-procedure Diagnosis:: Degenerative disc lumbar spine multilevels. Lumbar radiculopathy. Lumbar spondylosis. Multilevel lumbar facet arthropathy Post-procedure Diagnosis:: Same. Indications for Procedure:: Patient is a very pleasant 67-year-old male that comes our clinic today for lumbar epidural steroid injection to the L4-5 level. Patient complains of low back pain as well as bilateral hip and leg radicular symptoms. He rates his pain 7/10. 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 Procedure Details:: Procedure: Lumbar epidural steroid injection under fluoroscopy Informed consent was obtained and the risks and benefits of the procedure were explained to the patient. The patient was taken to the procedure room and noninvasive monitors placed, including noninvasive blood pressure cuff and pulse oximeter. The back was viewed using C-arm Fluoroscopy and prepped using Chloraprep as a cleansing solution and the L4-L5 interspace was palpated. Skin and subcutaneous tissues were anesthetized using lidocaine 1.5% and a 25-gauge needle. After this, an 18-gauge Touhy epidural needle was placed into the L4-L5 interspace and advanced using fluoroscopic guidance and loss of resistance to air until the epidural space was encountered. After confirmation of needle placement in the epidural space, with dye, a solution containing normal saline, 3 mL and Depo-Medrol 80 mg were incrementally injected into the lumbar epidural space. The patient tolerated the procedure well with no complications. The patient was observed in the Pain Clinic and then discharged home neurologically intact. Plan and Disposition:: Patient was discharged without incident.
== END | disposition home or self-care (01) ==
PROVIDERS: PCP Family Medicine; Visit Provider Nurse Anesthetist, Certified Registered
DX: M51.16 Intervertebral disc disorders with radiculopathy, lumbar region (principal); M47.26 Other spondylosis with radiculopathy, lumbar region
CPT/HCPCS: 62323; J1040

== ENCOUNTER → 2022-12-20 11:04 | Outpatient (POV) | payer MEDICARE, OTHER, SELFPAY ==
--- NOTE | 2022-12-20 12:00 | EXP.PAIN.SOA ---
[facility] Pain Management SOAP Note Subjective:: Patient is a pleasant 67-year-old male who presents today for follow-up of lumbar epidural steroid injection L4-L5 on 11/28/2022. We are currently treating the patient for degenerative disc disease of lumbar spine with lumbar radiculopathy symptoms, hip pain. Today he rates his pain a 4 out of 10. Patient states he has had at least 60% improvement following this injection and feels like it is still continuing to provide additional relief. Patient does state that he has been able to increase his activity with decreased pain symptoms and move around with more function following this injection. He does state that his pain today is more related to his hip. Patient did have his right hip replaced by Dr. Montgomery at [facility] and has been told that he needs his left hip replaced however he was trying to postpone this as long as possible. Patient has had an injection into this hip with no additional relief. Patient is not on any scheduled medications. His [place] is [id number]. Its been reviewed and appropriate. Review of Systems: General: No recent weight changes, no fever, no sleep disturbances Respiratory: No cough, no shortness of air, no recurring pulmonary infections Cardiovascular/peripheral vascular: No chest pain, no palpitations, no edema, no shortness of breath Gastrointestinal: No new onset incontinence, normal bowel movements reported Genitourinary: No new onset incontinence Musculoskeletal: Left hip Psychiatric: [Normal mood/affect] Neurological: [Denies weakness in extremities], [denies balance issues] Objective:: Physical Exam: General: Alert and oriented x3, no acute distress, pleasant and cooperative Lungs: Respirations even and unlabored, symmetrical chest expansion Eyes: PERRL Musculoskeletal: Flexion and extension of left hip somewhat guarded secondary to pain, [antalgic gait noted] Neurological: Speech clear, no gross sensory deficit Assessment:: Degenerative disc disease of lumbar spine with lumbar radiculopathy symptoms, left hip pain Plan:: Patient has had significant improvement of his back pain following his lumbar epidural steroid injection and does not require any additional injective therapy at this location. I have discussed with the patient that we could always try repeating an intra-articular hip injection however at this time he would like to wait. I will order the patient a compounded cream and have him follow-up in clinic in 1 month for reevaluation of symptoms and plan of care. Patient has been instructed to contact the clinic with any concerns before the next appointment. Dr. Blancas has reviewed this note and agrees with this plan of care. This note was dictated using voice recognition software and make contain errors or omissions. [facility] Disclaimer: The information contained in this section may have been updated after the patient was seen, as this information can be updated by other users. Medical History Kidney stone Surgical History History of cholecystectomy History of total right hip replacement History of total right knee replacement Family History Other No significant family history Social History Smoking Status: Unknown if ever smoked alcohol intake: never current occupational status: retired Travel in the last 8 weeks: None
[2022-12-20 12:04] VITALS: BP 124/70; PULSE 61; RESP 18; O2SAT 98; BMI 34.8
== END ==
PROVIDERS: PCP Family Medicine; Visit Provider Nurse Practitioner Family
DX: M51.16 Intervertebral disc disorders with radiculopathy, lumbar region (principal); M25.552 Pain in left hip
CPT/HCPCS: 99212; G0463

== ENCOUNTER 2023-04-05 09:17 | Outpatient (CLI) | payer SELFPAY | END 2023-04-05 10:15 | disposition home or self-care (01) | PROVIDERS: PCP Family Medicine; Visit Provider Nurse Practitioner Family | DX: Z02.4 Encounter for examination for driving license (principal) ==

== ENCOUNTER 2023-07-04 10:00 | Outpatient (RCR) | payer MEDICARE, OTHER, SELFPAY | END 2023-07-18 11:36 | disposition home or self-care (01) | LOC: PT 10:00 | PROVIDERS: Visit Provider Orthopaedic Surgery | DX: M25.552 Pain in left hip (principal); Z96.642 Presence of left artificial hip joint | CPT/HCPCS: 97010; 97014; 97110; 97140; 97163; 97530; G0283 ==

== ENCOUNTER 2024-07-10 09:03 | Observation (INO) | payer MEDICARE, OTHER, SELFPAY ==
[2024-07-10] VITALS (19 sets, daily range): BP systolic 96–152; BP diastolic 53–85; PULSE 49–83; RESP 10–20; TEMP 36.4–36.9; O2SAT 92–100; BMI 37.3; BMI 35.9
--- NOTE | 2024-07-10 09:04 | XR_ITS ---
FINAL REPORT CLINICAL HISTORY: Nonspecific chest pain COMPARISON: 05/23/2021 FINDINGS: No acute pulmonary opacity is present. There is no evidence of effusion or pneumothorax. Mediastinum is unremarkable. Heart size is normal. IMPRESSION: No acute abnormality. Reviewed, Interpreted and Dictated by Marianela Davidson MD Transcribed by Cathy Pro Authenticated and [facility]
--- NOTE | 2024-07-10 09:04 | ECG_ITS ---
APPROVED REPORT Exam: Resting ECG HR:78 bpm ECG Measurements Heart Rate 78 AXES CA 155 P 1 QRSd 105 QRS -8 QT 366 T 52 QTc 400 Conclusion SINUS RHYTHM INCOMPLETE RIGHT BUNDLE BRANCH BLOCK [90+ ms QRS DURATION, TERMINAL R IN V1/V2, 40+ ms S IN I/aVL/V4/V5/V6] LEFT VENTRICULAR HYPERTROPHY AND ST-T CHANGE [VOLTAGE CRITERIA PLUS ST/T ABNORMALITY] ABNORMAL ECG Electronically signed by : FINA JIMENEZ, 07/11/2024 07:39:01
--- NOTE | 2024-07-10 09:05 | HMH.EDCP ---
Discharge Plan Disposition Patient Disposition: Admitted Chief Complaint: Chest Pain Prescriptions Prescriptions: No Action amlodipine 10 MG tablet 10 mg PO DAILY losartan 25 MG tablet 25 mg PO DAILY potassium citrate m-hyd(bulk) 500 GM granules 1,080 mg PO QID diclofenac sodium 75 mg tablet,delayed release (DR/EC) 75 mg PO BID aspirin 81 mg Capsule 81 mg PO DAILY Referrals Follow up/Referrals: Provider,Referral, MD [Primary Care Provider] - See instructions Clinical Impressions Clinical Impression: Angina pectoris, unstable Print Language Print Language: Frisian Discharge ED Provider: Esteban Lua HPI General Chief Complaint: Chest Pain Stated Complaint: Chest Pain Time Seen by Provider: 07/10/24 09:04 History of Present Illness HPI narrative: Patient is a 69-year-old male with past medical history of hypertension who presents emergency department for evaluation of chest pain. He has never had chest pain before and he had a short duration of it yesterday while he was working, this morning since 4 AM he has had substernal low chest pain that does not radiate through to his back. Not particularly modifiable. No associated infectious symptoms such as cough or rhinorrhea or vomiting. Due to persistent symptoms he presents here for continued evaluation. Please note that above description of symptoms, in this electronic medical record under categorization of recalled from ER triage doctor by RN are reflective of an initial nursing assessment, however, is not reflective of my full history and physical exam that was personally taken and clarified. Consequentially, this preceding description of symptoms, which may include the patient's categorized chief complaint in the EMR, do not reflect my personal clinical impression, and the ultimate description of history of present illness and patient stated complaints should be deferred to this section of the note. Unless stated otherwise or congruent with this section of the note, additional signs, symptoms, or incongruence should be interpreted as inaccurate with my clinical impression. Related Data Home Medications ?Medication ?Instructions ?Recorded ?Confirmed amlodipine 10 mg tablet 10 mg PO DAILY HTN 08/05/17 07/10/24 losartan 25 mg tablet 25 mg PO DAILY HTN 08/05/17 07/10/24 potassium citrate m-hyd(bulk) 1,080 mg PO QID Kidney stones 08/05/17 07/10/24 aspirin 81 mg capsule 81 mg PO DAILY . 01/10/22 07/10/24 diclofenac sodium 75 mg 75 mg PO BID . 01/10/22 07/10/24 tablet,delayed release Allergies Allergy/AdvReac Type Severity Reaction Status Date / Time No Known Allergies Allergy Verified 07/10/24 10:42 [facility] Disclaimer: The information contained in this section may have been updated after the patient was seen, as this information can be updated by other users. Medical History (Updated 07/10/24 @ 11:43 by Esteban Lua MD) Kidney stone Surgical History History of cholecystectomy History of total right hip replacement History of total right knee replacement Family History Other No significant family history Social History Smoking Status: Never smoker alcohol intake: never current occupational status: retired Travel in the last 8 weeks: None Have you lived/traveled outside US in past 30 days?: No Contact w/someone who lives/traveled outside US past 30 days?: No Exposure to someone with infectious disease in past 14 days?: No Do you have a fever (greater than 100.4 F or 38 C)?: No Have you tested positive for COVID-19: No Exposed to someone with COVID-19 in past 14 days?: No Do you have a sore throat?: No Do you have a cough?: No Do you have any weakness?: No Do you have any diarrhea?: No Are you experiencing any unusual bleeding?: No Do you have any muscle aches/pain?: No Do you have any abdominal pain?: No Are you experiencing loss of taste or smell?: No Other Medical History Have you received the Flu Vaccine for this season: No Have you received the Pneumonia Vaccine: No ROS Obtained: Yes Systems reviewed as appropriate & no additional complaints except as documented Physical Exam General General appearance: alert and in no apparent distress Head Head exam: atraumatic and normocephalic Eye Eye exam: Present PERRL and EOMI ENT ENT exam: Present mucous membranes moist Neck Neck exam: Present normal inspection Chest Chest inspection: Present normal inspection and symmetric chest wall rise Respiratory Respiratory exam: Present normal lung sounds bilaterally; Absent respiratory distress Cardiovascular Cardiovascular exam: Present regular rate and normal rhythm Abdominal Exam Abdominal exam: Present soft; Absent tenderness Extremities Exam Extremities exam: Present normal inspection Neurological Exam Neurological exam: Present alert Psychiatric Psychiatric exam: Present normal affect Skin Skin exam: Present warm and dry HEART Score HEART Score HEART Score assessment performed?: Yes History (anamnesis): Highly suspicious ECG: Normal Age: >65 years Risk factors: 1-2 risk factors Troponin: </= normal limit HEART Score: 5 Critical Care Critical Care Time Critical Care Time: Yes Attestation: On 07/10/24, the high probability of a clinically significant, sudden or life threatening deterioration of the following system(s) required my full and direct attention, intervention and personal management. The time I documented below is in addition to time spent performing reported procedures but includes the following listed in this critical care notation. Total Time Total Critical Care Time: 35 Medical Decision Making [place] Inquiry Pt receiving controlled substance: No Vital Signs Vital Signs: 07/10/24 09:09 07/10/24 09:11 07/10/24 09:30 Temperature 98.5 F Temperature Source Oral Pulse Rate 73 65 Pulse Rate [Left Radial] 69 Respiratory Rate 10 L 20 11 L Blood Pressure 152/85 H 137/85 Blood Pressure [Right Arm] 152/85 H Blood Pressure Mean 110 102 Blood Pressure Mean [Right Arm] 107 02 Sat by Pulse Oximetry 97 94 L 97 Oxygen Delivery Method Room Air 07/10/24 10:00 07/10/24 10:39 Temperature Temperature Source Pulse Rate 60 69 Pulse Rate [Left Radial] Respiratory Rate 12 Blood Pressure 138/79 Blood Pressure [Right Arm] Blood Pressure Mean 99 Blood Pressure Mean [Right Arm] 02 Sat by Pulse Oximetry 97 Oxygen Delivery Method Lab Data Labs: Lab Results 07/10/24 09:10: WBC 6.8, RBC 5.26, Hgb 14.2, Hct 44.8, MCV 85.2, MCH 27.0, MCHC 31.7 L, RDW 14.6, Plt Count 237, MPV 8.8, Neut % (Auto) 65.8, Lymph % (Auto) 23.6, [place] % (Auto) 7.6, Eos % (Auto) 2.4, Baso % (Auto) 0.3, Neut # (Auto) 4.5, Lymph # (Auto) 1.6, [place] # (Auto) 0.5, Eos # (Auto) 0.2, Baso # (Auto) 0.0, D-Dimer 0.75 H, Sodium 141, Potassium 4.4, Chloride 102, Carbon Dioxide 28, Anion Gap 15.4 H, BUN 17, Creatinine 0.90, Estimated Creat Clear 116, Estimated GFR 83, Est GFR ( Amer) 101, Glucose 122 H, Calcium 9.1, Total Bilirubin 0.8, AST 52, ALT 90 H, Alkaline Phosphatase 106, Troponin I < 0.01, Total Protein 8.4 H, Albumin 4.5, Globulin 3.9 H, Albumin/Globulin Ratio 1.2, Lipase 74 07/10/24 09:10 07/10/24 09:10 Response Orders (Tests/Meds): ED MEDICATIONS Generic Name Dose Route Start Last Admin Trade Name Freq PRN Reason Stop Dose Admin Diazepam 5 mg 07/10/24 11:33 Diazepam 5mg Tablet PO 08/09/24 11:32 ONCE PRN Anxiety Fentanyl Citrate 50 mcg 07/10/24 11:33 Fentanyl 100mcg/2ml Vial IV 07/10/24 23:33 Q3MINP PRN Sedation Fentanyl Citrate 25 mcg 07/10/24 11:33 Fentanyl 100mcg/2ml Vial IV 07/10/24 23:33 Q3MINP PRN Sedation Flumazenil 0.2 mg 07/10/24 11:33 Flumazenil 0.1mg/Ml 5ml Vial IV 07/10/24 23:33 NEEDED PRN Sedation Heparin Sodium (Porcine) 5,000 unit 07/10/24 11:33 Heparin 1,000 Units/Ml 10ml Vial (Factory Focus Technician) IV 07/10/24 15:33 NEEDED PRN Emergency Box Exhibit Technician Hydralazine HCl 20 mg 07/10/24 11:33 Hydralazine 20mg/Ml Vial IV 07/10/24 15:33 ONCE PRN sbp>160 Adenosine 180 mg/ Sodium 90 mls @ 656.44 mls/hr 07/10/24 11:33 Chloride IV 07/10/24 15:33 ONCE PRN fractional flow reserve 180 MCG/KG/MIN Adenosine 90 mg/ Sodium 90 mls @ 1,312.88 mls/hr 07/10/24 11:33 Chloride IV 07/10/24 15:33 ONCE PRN fractional flow reserve 180 MCG/KG/MIN Sodium Chloride 1,000 mls @ 25 mls/hr 07/10/24 11:45 Sod Chloride 0.9% 500ml Bag IV 07/11/24 11:33 .Q25H DEVIN Labetalol HCl 20 mg 07/10/24 11:33 Labetalol 20mg/4ml Syringe IV 07/10/24 15:33 ONCE PRN sbp>160 Lorazepam 1 mg 07/10/24 11:33 Lorazepam 2mg/Ml Vial IV 08/09/24 11:32 ONCE PRN Anxiety Midazolam HCl 1 mg 07/10/24 11:33 Midazolam 2mg/2ml Vial IV 07/10/24 23:33 Q3MINP PRN Sedation Midazolam HCl 1 mg 07/10/24 11:33 Midazolam Hcl 1mg/Ml 5ml Vial IV 07/10/24 23:33 Q3MINP PRN Sedation Naloxone HCl 0.4 mg 07/10/24 11:33 Naloxone 0.4mg/Ml Vial IV 07/10/24 23:33 Q5MINP PRN Decreased Respirations Nitroglycerin 0.4 mg 07/10/24 09:04 Nitroglycerin 0.4mg Sl Tablet SL 08/09/24 09:03 Q5MINP PRN Chest Pain Nitroglycerin 800 mcg 07/10/24 11:33 Nitroglycerin 800mcg/8ml Syr (Factory Focus Technician) IA 07/10/24 15:33 NEEDED PRN Emergency Box Exhibit Technician Ondansetron HCl 4 mg 07/10/24 11:33 Ondansetron 4mg/2ml Vial IV NEEDED PRN Nausea Promethazine HCl 25 mg 07/10/24 11:33 Promethazine Hcl 25mg/Ml 1ml Vial IV NEEDED PRN Nausea And Vomiting Protamine Sulfate 50 mg 07/10/24 11:33 Protamine Sulfate 50mg/5ml Vial (Factory Focus Technician) IV 07/10/24 15:33 ONCE PRN act>200 Sodium Chloride 10 ml 07/10/24 11:33 Sodium Chloride 0.9% 10ml Vial IV 08/09/24 11:32 NEEDED PRN to Dilute Lorazepam inj Discontinued Medications Generic Name Dose Route Start Last Admin Trade Name Freq PRN Reason Stop Dose Admin Aspirin 324 mg 07/10/24 09:04 07/10/24 09:33 Aspirin 81mg Chewable Tablet PO 07/10/24 09:05 324 mg ONCE ONE Administration Belladonna Alkaloids 60 ml 07/10/24 09:04 07/10/24 09:34 Belladonna Alkaloids 60 Ml Ml PO 07/10/24 09:05 60 ml ONCE ONE Administration Diphenhydramine HCl 50 mg 07/10/24 11:33 Diphenhydramine 50mg/Ml Vial IV 07/10/24 11:34 ONCE ONE Heparin Sodium/Sodium Chloride 3,000 unit 07/10/24 11:33 Heparin 1,000 Units/500ml Ns (Factory Focus Technician) IV 07/10/24 11:34 ONCE ONE Iopamidol 80 ml 07/10/24 10:31 07/10/24 10:32 Iopamidol-370 (76%);100ml Bottle IV 07/10/24 10:32 80 ml ONCE ONE Administration Lidocaine HCl 10 ml 07/10/24 11:33 Lidocaine 1% 10ml Mdv IJ 07/10/24 11:34 ONCE ONE Lidocaine HCl 10 ml 07/10/24 11:33 Lidocaine 1% 5ml Pf Vial IJ 07/10/24 11:34 ONCE ONE Morphine Sulfate 4 mg 07/10/24 09:04 07/10/24 09:34 Morphine 4mg/Ml Syringe IV 07/10/24 09:05 4 mg ONCE ONE Administration Morphine Sulfate 4 mg 07/10/24 11:33 Morphine 4mg/Ml Syringe IV 07/10/24 11:34 ONCE ONE Ondansetron HCl 4 mg 07/10/24 09:04 07/10/24 09:34 Ondansetron 4mg/2ml Vial IV 07/10/24 09:05 4 mg ONCE ONE Administration Sodium Chloride 50 ml 07/10/24 10:31 07/10/24 10:32 0.9 % Sodium Chloride 50 Ml Vial IV 07/10/24 10:32 50 ml ONCE ONE Administration Sodium Chloride 10 ml 07/10/24 10:31 07/10/24 10:32 Sodium Chloride 0.9% 10ml Syr (Rad Only) IV 07/10/24 10:32 10 ml ONCE ONE Administration Sodium Chloride 25 ml 07/10/24 11:33 Sodium Chloride 0.9% 25ml Bag IV 07/10/24 11:34 ONCE ONE Verapamil HCl 2.5 mg 07/10/24 11:33 Verapamil 2.5mg/Ml 2ml Vial IV 07/10/24 11:34 ONCE ONE ORDERS Category Date Time Status CT angio chest - dissection Stat Cat Scan 07/10/24 10:17 Completed CXR --portable [XR chest portable] Stat Exams 07/10/24 09:04 Taken CBC w/Auto Diff [Complete Blood Count Auto Diff] Stat Lab 07/10/24 09:10 Completed CMP [Comprehensive Metabolic Panel] Stat Lab 07/10/24 09:10 Completed D-Dimer Stat Lab 07/10/24 09:10 Completed Lipase Stat Lab 07/10/24 09:10 Completed Trop I [Troponin I] Stat Lab 07/10/24 09:10 Completed Troponin I Q3H Lab 07/10/24 13:10 Ordered Troponin I Q3H Lab 07/10/24 16:10 Ordered ECG Data Tracing #1: ECG Narrative: Independently interpreted by me rate of 78, rhythm is regular, axis is normal, no ST elevation in anatomical contiguous leads, QTc 400. MDM Narrative Medical Decision Narrative: In summary patient is a 69-year-old male past medical history described above who presents emergency department for evaluation of chest pain. Patient is hemodynamically stable and nontoxic-appearing upon arrival, afebrile. Differential diagnosis includes ACS, pulmonary embolism, aortic dissection, among others. Workup will be conducted with hematologic labs, chest x-ray, EKG, serial troponins, D-dimer. Initial inventions include aspirin, nitroglycerin, morphine, Zofran. Initial workup reviewed by me, no significant leukocytosis or anemia, D-dimer is elevated we will proceed with CT imaging at this time, no BILL or critical electrolyte abnormalities with troponin undetectably low. Chest x-ray informally interpreted by me, no acute dense lobar opacities or large pneumothorax. CTA chest no evidence of pulmonary embolism or dissection, no pulmonary infiltrate. On repeat evaluation patient had persistent chest pain. Patient is high risk given his history and physical exam and lack of cardiovascular evaluation previously. Case was discussed with Dr. Fuchs regarding management we will proceed with heart catheterization at this time. Case was discussed with hospital medicine regarding management and they will meet the patient their service for continued evaluation post cath.
--- NOTE | 2024-07-10 09:19 | PC.NURSE ---
xr at bedside
[2024-07-10 09:25] LABS: Basophils % 0.3 % (0.1-2.0); Eosinophils # 0.2 K/mm3 (0.0-0.4); Eosinophils % 2.4 % (0.1-12.0); Hematocrit 44.8 % (42.0-52.0); Hemoglobin 14.2 g/dL (14.1-18.0); Lymphocytes # 1.6 K/mm3 (0.7-4.5); Lymphocytes % 23.6 % (10-50); Mean Corpuscular HGB Conc 31.7 g/dL (31.8-35.4); Mean Corpuscular Volume 85.2 fl (80-94); Mean Platelet Volume 8.8 fl (7.4-10.4); Monocytes # 0.5 K/mm3 (0.1-1.0); Monocytes % 7.6 % (1.7-9.3); Neutrophils # 4.5 K/mm3 (1.8-7.8); Neutrophils % 65.8 % (37.0-80.0); Nucleated Red Blood Cells # 0 10^3/uL; Nucleated Red Blood Cells % 0 %; Platelet Count 237 K/mm3 (142-424); Red Blood Count 5.26 M/mm3 (4.60-6.20); Red Cell Distribution Width 14.6 % (11.5-17.5); Red Cell Distribution Width-SD 44.7 fL; White Blood Count 6.8 K/mm3 (4.8-10.8)
[2024-07-10] MEDS: ASPIRIN 81MG CHEWABLE TABLET 324 MG PO (09:33)
[2024-07-10] MEDS: BELLADONNA ALKALOIDS 60 ML ML PO (09:34)
[2024-07-10] MEDS: MORPHINE 4MG/ML SYRINGE 4 MG IV (09:34)
[2024-07-10] MEDS: ONDANSETRON 4MG/2ML VIAL 4 MG IV (09:34)
[2024-07-10 09:35] LABS: Alanine Aminotransferase 90 U/L (12-78); Albumin Level 4.5 g/dl (3.5-5.0); Albumin/Globulin Ratio 1.2 (1.1-1.8); Alkaline Phosphatase 106 U/L (38-126); Anion Gap 15.4 mEq/L (5-15); Aspartate Amino Transferase 52 U/L (17-59); Bilirubin,Total 0.8 mg/dl (0.2-1.3); Blood Urea Nitrogen 17 mg/dl (9-20); Calcium 9.1 mg/dl (8.4-10.2); Carbon Dioxide 28 mmol/L (22.0-30.0); Chloride 102 mmol/L (98-107); Creatinine Clearance Estimated 116 mL/min (50-200); Estimated Glomerular Filt Rate 83 ml/min (>60); GFR (African American) 101 ML/MIN (>60); Globulin 3.9 g/dL (1.3-3.2); Glucose 122 mg/dl (74-100); Lipase 74 U/L (23-300); Potassium 4.4 mmoL/L (3.5-5.1); Sodium 141 mmol/L (136-145); Total Protein,Serum 8.4 g/dl (6.3-8.2)
[2024-07-10 09:39] LABS: D-Dimer 0.75 ug/mL (0.0-0.5)
--- NOTE | 2024-07-10 10:01 | PC.NURSE ---
ROUNDED ON PT, NO NEEDS AT THIS TIME. CALL LIGHT WITHIN REACH
--- NOTE | 2024-07-10 10:17 | CT_ITS ---
FINAL REPORT TECHNIQUE: Thin section axial CT with contrast with multiplanar reconstruction This study was performed with techniques to keep radiation doses as low as reasonably achievable, (ALARA). Individualized dose reduction techniques using automated exposure control or adjustment of mA and/or kV according to the patient''s size were employed. CLINICAL HISTORY: chest pain, elevated dimer COMPARISON: none FINDINGS: Pulmonary vessels enhance in normal fashion without evidence of embolism. Thoracic aorta shows no dissection or aneurysm. No pulmonary mass or infiltrate is present. There is no significant pleural effusion. There is no significant pericardial effusion. No mediastinal or hilar adenopathy is present. Limited images of the upper abdomen demonstrate nonobstructing bilateral renal stones. There is fatty infiltration of the liver. IMPRESSION: No acute lung disease. No evidence of pulmonary embolism. Reviewed, Interpreted and Dictated by Marianela Davidson MD Transcribed by Cathy Pro Authenticated and [facility]
[2024-07-10] MEDS: IOPAMIDOL-370 (76%);100ML BOTTLE 80 ML IV (10:32)
[2024-07-10] MEDS: SODIUM CHLORIDE 0.9% 10ML SYR (RAD ONLY) 10 ML IV (10:32)
[2024-07-10] MEDS: 0.9 % SODIUM CHLORIDE 50 ML VIAL IV (10:32)
[2024-07-10 10:53] LABS: Troponin I < 0.01 ng/ml (0.00-0.034)
--- NOTE | 2024-07-10 11:27 | PC.NURSE ---
Dr Fernandes called back and is speaking with Dr Lua at this time.
--- NOTE | 2024-07-10 11:40 | IR_ITS ---
APPROVED REPORT Patient Location: Inpatient PROCEDURES Left heart catheterization Left ventriculogram Selective coronary angiogram INDICATION Unstable angina Informed consent was obtained prior to the procedure. COMPLICATIONS NONE Estimated Blood Loss: LESS THAN 10 ML TECHNIQUE One percent lidocaine used to anesthetize the right anterior aspect of the wrist. The right radial artery was accessed via the Seldinger technique. A 6 [place] sheath was placed in the right radial artery. 2.5 mg of Verapamil, 800 mcg of nitroglycerin, 1mg Lidocaine and 5000 U Heparin were given through the arterial sheath. The 6 [place] JL 3 guide catheter was also used to perform left heart catheterization, left ventriculogram and selective coronary angiogram. At the end of the procedure the sheath was removed good hemostasis was achieved using Traclet band, patient was transferred to the postop holding area in stable condition. ANGIOGRAPHIC RESULTS The left main artery Normal The left anterior descending artery Proximally normal with mid vessel smooth 10 to 20% stenoses. The circumflex artery Nondominant and has a proximal eccentric smooth 20% stenosis The right coronary artery Large dominant highly tortuous with a mid vessel smooth 30% concentric stenosis The [place] ventriculogram reveals Hyperdynamic 75% The left ventricular end-diastolic pressure Moderate to severely elevated at 25 mmHg IMPRESSION Mild nonflow limiting coronary disease Tortuous coronary arteries consistent with hyper tensive heart disease Hyperdynamic ventricle consistent with hypertensive heart disease Elevated LVEDP consistent with hypertensive heart disease PLAN 1. Medical management for coronary artery disease 2. Treatment of hypertension 3. Recommend additional workup given patient's ongoing substernal chest pain Electronically signed by : Jamar Fernandes MD 07/10/2024 12:50:44
--- NOTE | 2024-07-10 11:44 | PC.NURSE ---
Called radiology to check on the status for cxr read. States it is locked on and being read now. Dr Lua updated with this information.
--- NOTE | 2024-07-10 11:49 | PC.NURSE ---
pt consented and clipped for cathlab. Cathlab to call when to bring patient up.
--- NOTE | 2024-07-10 12:02 | PC.NURSE ---
[facility] called and states they are ready for pt. Sallie Valdivia RN taking pt via stretcher
[2024-07-10] MEDS: HEPARIN 1,000 UNITS/ML 10ML VIAL (CATH LAB) 5000 UNIT IV (12:24)
[2024-07-10] MEDS: VERAPAMIL 2.5MG/ML 2ML VIAL 2.5 MG IV (12:25)
[2024-07-10] MEDS: MIDAZOLAM HCL 1MG/ML 5ML VIAL 1 MG IV (12:25)
[2024-07-10] MEDS: LIDOCAINE 1% 10ML MDV 10 ML IJ (12:25)
[2024-07-10] MEDS: FENTANYL 100MCG/2ML VIAL 50 MCG IV (12:25)
[2024-07-10] MEDS: 0.9 % SODIUM CHLORIDE 500 ML 25 ML IV (12:27)
[2024-07-10] MEDS: HEPARIN 1,000 UNITS/500ML NS (CATH LAB) 3000 UNIT IV (12:27)
[2024-07-10] MEDS: diphenhydrAMINE 50MG/ML VIAL 50 MG IV (12:28)
[2024-07-10] MEDS: NITROGLYCERIN 800MCG/8ML SYR (CATH LAB) 800 MCG IA (12:28)
[2024-07-10] MEDS: IOPAMIDOL-370 (76%);100ML BOTTLE 60 ML IV (14:25)
--- NOTE | 2024-07-10 14:43 | HMH.PHAINT1 ---
Pharmacy Intervention Comments: MEDICATION RECONCILIATION COMPLETED ON PATIENT USING EXTERNAL FILL HISTORY FROM PHARMACY. -JASON HUFFMAN, HUSSAIND
--- NOTE | 2024-07-10 16:47 | PC.NURSE ---
AOX4, ARRIVED TO FLOOR FROM [employer] REQUIRING 6L ON SIMPLE MASK BUT HAS SINCE BEEN WEANED TO ROOM AIR AND IS TOLERATING WELL. HEART CATH TODAY NO STENTS PLACED RADIAL APPROACH.
--- NOTE | 2024-07-10 19:11 | EXP.HP ---
History of Present Illness *Admission Date: 07/10/24 *Reason for visit:: Chest pain *History of present illness: Kavon Valdivia is a 69-year-old male with a medical history significant for hypertension who presents with acute onset midsternal chest pain. 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 He denies radiation, shortness of breath, fever/chills, abdominal pain. He has never had chest pain like this before, non-smoker. Does not think it is heartburn but does endorse he has intermittent heartburn. On arrival, troponins were normal and EKG without acute ischemic changes. He continued to have chest pain in spite of GI cocktail, morphine so Dr. Fernandes was consulted who took patient to the Senior Quality Manager revealing nonocclusive CAD. Case discussed with ED provider and decision was made to admit patient for further chest pain workup. [facility] Disclaimer: The information contained in this section may have been updated after the patient was seen, as this information can be updated by other users. Medical History (Updated 07/10/24 @ 19:19 by Yon Zuniga MD) Kidney stone Surgical History History of cholecystectomy History of total right hip replacement History of total right knee replacement Family History Other No significant family history Social History Smoking Status: Never smoker alcohol intake: never current occupational status: retired Travel in the last 8 weeks: None Have you lived/traveled outside US in past 30 days?: No Contact w/someone who lives/traveled outside US past 30 days?: No Exposure to someone with infectious disease in past 14 days?: No Do you have a fever (greater than 100.4 F or 38 C)?: No Have you tested positive for COVID-19: No Exposed to someone with COVID-19 in past 14 days?: No Do you have a sore throat?: No Do you have a cough?: No Do you have any weakness?: No Do you have any diarrhea?: No Are you experiencing any unusual bleeding?: No Do you have any muscle aches/pain?: No Do you have any abdominal pain?: No Are you experiencing loss of taste or smell?: No Other Medical History Have you received the Flu Vaccine for this season: No Have you received the Pneumonia Vaccine: No Meds Home Medications and Allergies Home Medications ?Medication ?Instructions ?Recorded ?Confirmed ?Type amlodipine 10 mg tablet 10 mg PO DAILY 08/05/17 07/10/24 History losartan 25 mg tablet 25 mg PO DAILY 08/05/17 07/10/24 History aspirin 81 mg capsule 81 mg PO DAILY . 01/10/22 07/10/24 History diclofenac sodium 75 mg 75 mg PO BID 01/10/22 07/10/24 History tablet,delayed release potassium citrate 10 mEq (1,080 10 meq PO QID 07/10/24 07/10/24 History mg) tablet,extended release New Prescriptions to Start Prescriptions: Allergies Allergy/AdvReac Type Severity Reaction Status Date / Time No Known Allergies Allergy Verified 07/10/24 10:42 Exam Data for Last 24 hours Vital signs and Labs for Last 24 Hours: Temp Pulse Resp BP Pulse Ox O2 Del Method 97.8 F 63 18 103/57 L 96 Room Air 07/10/24 12:04 07/10/24 15:10 07/10/24 15:10 07/10/24 15:10 07/10/24 15:10 07/10/24 18:23 Laboratory Results - last 24 hr 07/10/24 09:10: WBC 6.8, RBC 5.26, Hgb 14.2, Hct 44.8, MCV 85.2, MCH 27.0, MCHC 31.7 L, RDW 14.6, Plt Count 237, MPV 8.8, Neut % (Auto) 65.8, Lymph % (Auto) 23.6, [place] % (Auto) 7.6, Eos % (Auto) 2.4, Baso % (Auto) 0.3, Neut # (Auto) 4.5, Lymph # (Auto) 1.6, [place] # (Auto) 0.5, Eos # (Auto) 0.2, Baso # (Auto) 0.0, D-Dimer 0.75 H, Sodium 141, Potassium 4.4, Chloride 102, Carbon Dioxide 28, Anion Gap 15.4 H, BUN 17, Creatinine 0.90, Estimated Creat Clear 116, Estimated GFR 83, Est GFR ( Amer) 101, Glucose 122 H, Calcium 9.1, Total Bilirubin 0.8, AST 52, ALT 90 H, Alkaline Phosphatase 106, Troponin I < 0.01, Total Protein 8.4 H, Albumin 4.5, Globulin 3.9 H, Albumin/Globulin Ratio 1.2, Lipase 74 I & O for Last 24 hours: Intake & Output 07/07/24 07/08/24 07/09/24 07/10/24 23:59 23:59 23:59 23:59 Intake Total 360 / 360 Balance 360 / 360 Weight 116.828 kg Constitutional Constitutional: no acute distress and obese *Routine HEENT Exam Head: Present normocephalic Eye: Present EOMI and PERRL ENT: Present mucous membranes moist *Routine Neck Exam Neck: Present supple; Absent lymphadenopathy *Routine Respiratory Exam Respiratory: Present CTA bilaterally *Routine Cardiovascular Exam Cardiovascular: Present RRR *Routine Abdominal Exam Abdominal: Present soft and normoactive bowel sounds; Absent tenderness *Routine Rectal Exam Rectal:: deferred *Routine Genitalia Exam Genitalia:: deferred *Routine Extremities Exam Extremities: Absent cyanosis, clubbing or edema *Routine Skin Exam Skin: Present warm; Absent rash *Routine Neurological Exam Neurological: Present alert and oriented X3 Assessment and Plan *Assessment and plan (1) Chest pain: Status: Acute Category: Medical Code(s): R07.9 - Chest pain, unspecified Plan Kavon Valdivia is a 69-year-old male with a medical history significant for hypertension who presents with acute onset midsternal chest pain. Patient states he had a regular day working on the [employer] yesterday, but woke up this morning with midsternal chest pain 6 out of 10. He denies radiation, shortness of breath, fever/chills, abdominal pain. He has never had chest pain like this before, non-smoker. Does not think it is heartburn but does endorse he has intermittent heartburn. On arrival, troponins were normal and EKG without acute ischemic changes. He continued to have chest pain in spite of GI cocktail, morphine so Dr. Fernandes was consulted who took patient to the Senior Quality Manager revealing nonocclusive CAD. Case discussed with ED provider and decision was made to admit patient for further chest pain workup. #Chest pain ? S/p [facility]/12/2024 without occlusive disease. No stents placed. Noted elevated LVEDP, and torturous coronary arteries possibly consistent with hypertensive heart disease. ? Patient does have a mild midsternal chest pain at this time without radiation but he states it does not bother him much. Not reproducible to palpation. ? CTA chest without dissection or PE or intrapulmonary findings. ? Aspirin 81 mg, metoprolol succinate 25 mg, atorvastatin 40 mg, Protonix 40 mg. ? Follow-up A1c, LDL, TSH. ? Follow-up ECHO. ? Cardiology consulted, pending further recommendations. #Hypertension ? Hold home BP meds due to soft pressures at this time. Full code DVT prophylaxis: Lovenox 40 mg
[2024-07-10] MEDS: ATORVASTATIN 40MG TABLET 40 MG PO (20:30)
[2024-07-10] MEDS: PANTOPRAZOLE 40MG TABLET 40 MG PO (20:30)
[2024-07-10] MEDS: METOPROLOL SUCCINATE XL 25MG TABLET 25 MG PO (20:30)
[2024-07-11] VITALS: BP 99/47; PULSE 47; PULSE 50; RESP 16; TEMP 36.3; O2SAT 92
--- NOTE | 2024-07-11 02:52 | PC.NURSE ---
TR band removed and dressing applied with no additional bleeding. Pt is on room air. 22 LFA, saline locked. Pt has continually denied pain or any additional issues. Currently resting with eyes closed. Respirations even and unlabored. Bed is low, locked, and call light is in reach.
[2024-07-11 04:00] VITALS: BP 118/59; PULSE 49; PULSE 50; RESP 16; TEMP 36.3; O2SAT 95; BMI 76.5
--- NOTE | 2024-07-11 06:00 | CA_ITS ---
APPROVED REPORT EXAM: Comprehensive 2D, Doppler, and color-flow Echocardiogram Merchant Banker: Yamila Murphy RDCS Ht: 5 ft 11 in Wt: 257lbs BSA: 2.35 BP: 145/88 mmHg Indications: CHF M-Mode Dimensions RVDd 2.01 cm (0.9-2.6) LA Diam 4.00 cm (1.9-4.0) LVDd 5.31 cm (3.5-5.7) LVDs 3.45 cm (3.5-5.7) IVSd 1.18 cm (0.6-1.1) PWd 1.02 cm (0.6-1.1) EF (Teich) 63.90% FS 35.00% EDV (Teich) 135.90 mL ESV (Teich) 49.10 mL LV Diastology E Decel Time 250 (160-240 msec) E/A Ratio 1.2 Mitral Valve MV E Max Cheikh. 68.0 (40-130 cm/s) MV A Velocity 58.0 (40-130 cm/s) E/A Ratio 1.17 MV PHT 73.0 ms Left Ventricle The left ventricle is normal size. There is increased LV wall thickness. The left ventricular systolic function is normal. The left ventricular ejection fraction is within the normal range. There is normal LV segmental wall motion. The left ventricular diastolic function is normal. LVEF is 55%. Right Ventricle The right ventricle is mildly dilated. The right ventricular systolic function is normal. Atria The left atrium is mildly dilated. The right atrium is mildly evaluated. There is no Doppler evidence of interatrial shunt. Aortic Valve Aortic valve is mildly thickened. There is no aortic valvular stenosis. No aortic regurgitation is present. Mitral Valve The mitral valve is normal in structure. Trace mitral regurgitation. No evidence of mitral valve stenosis. Tricuspid Valve Tricuspid valve is grossly normal in structure and function. Trace tricuspid regurgitation. There is insufficient TR jet to estimate RVSP. Pulmonic Valve The pulmonary valve is normal in structure. Trace pulmonic regurgitation. Great Vessels The aortic root is normal in size. IVC is normal in size and collapses >50% with inspiration. Pericardium There is no pericardial effusion. Other Information Study Quality: Fair Conclusion Normal LV systolic function. Mild RV dilation with normal RV function. Mild biatrial dilation. No significant valvular stenosis or regurgitation. Electronically signed by : Bettina Carrillo MD 07/11/2024 10:01:41
[2024-07-11 06:13] LABS: Basophils % 0.3 % (0.1-2.0); Eosinophils # 0.2 K/mm3 (0.0-0.4); Hemoglobin 13.2 g/dL (14.1-18.0); Lymphocytes # 1.5 K/mm3 (0.7-4.5); Lymphocytes % 24.3 % (10-50); Mean Corpuscular HGB Conc 31.4 g/dL (31.8-35.4); Mean Corpuscular Hemoglobin 26.9 pg (27.0-31.2); Mean Corpuscular Volume 85.5 fl (80-94); Mean Platelet Volume 9.3 fl (7.4-10.4); Monocytes # 0.5 K/mm3 (0.1-1.0); Monocytes % 8.4 % (1.7-9.3); Neutrophils # 3.8 K/mm3 (1.8-7.8); Neutrophils % 63.5 % (37.0-80.0); Nucleated Red Blood Cells # 0 10^3/uL; Nucleated Red Blood Cells % 0 %; Platelet Count 215 K/mm3 (142-424); Red Blood Count 4.91 M/mm3 (4.60-6.20); Red Cell Distribution Width 14.7 % (11.5-17.5); Red Cell Distribution Width-SD 45.9 fL; White Blood Count 6.1 K/mm3 (4.8-10.8)
[2024-07-11 06:18] LABS: Albumin Level 3.9 g/dl (3.5-5.0); Chloride 104 mmol/L (98-107)
[2024-07-11 06:19] LABS: Potassium 4.6 mmoL/L (3.5-5.1); Sodium 140 mmol/L (136-145)
[2024-07-11 06:21] LABS: Alanine Aminotransferase 83 U/L (12-78); Albumin/Globulin Ratio 1.2 (1.1-1.8); Alkaline Phosphatase 83 U/L (38-126); Anion Gap 10.6 mEq/L (5-15); Aspartate Amino Transferase 51 U/L (17-59); Bilirubin,Total 0.6 mg/dl (0.2-1.3); Blood Urea Nitrogen 17 mg/dl (9-20); Carbon Dioxide 30 mmol/L (22.0-30.0); Creatinine Clearance Estimated 58 mL/min (50-200); Estimated Glomerular Filt Rate 60 ml/min (>60); GFR (African American) 72 ML/MIN (>60); Globulin 3.3 g/dL (1.3-3.2); Total Protein,Serum 7.2 g/dl (6.3-8.2); Triglycerides 145 mg/dl (30-150); VLDL Cholesterol 29 mg/dL (0-40)
[2024-07-11 06:22] LABS: Chol/HDL Ratio 4.6 (1-3.5); Cholesterol 158 mg/dl (140-200); Glucose 108 mg/dl (74-100); HDL Cholesterol 34 mg/dl (40-60); Magnesium 2.1 mg/dl (1.6-2.3)
[2024-07-11 06:33] LABS: Direct LDL Cholesterol 93.04 mg/dL (100-129)
[2024-07-11 06:52] LABS: Thyroid Stimulating Hormone 2.04 uIU/mL (0.465-4.68)
[2024-07-11 08:00] VITALS: BP 111/61; PULSE 50; PULSE 54; RESP 20; TEMP 36.4; O2SAT 93
[2024-07-11] MEDS: ENOXAPARIN 40MG/0.4ML SYRINGE 40 MG SUBCUT (08:43)
[2024-07-11] MEDS: ASPIRIN EC 81MG TABLET 81 MG PO (08:43)
--- NOTE | 2024-07-11 09:35 | EXP.CARD.CON ---
History of Present Illness History of Present Illness Consult date: 07/11/24 Requesting physician: Yon Zuniga Consult reason: chest pain Chief complaint: chest pain History of present illness: Kavon Valdivia is a 69-year-old male with a medical history significant for hypertension who presents with acute onset midsternal chest pain. 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 He denies radiation, shortness of breath, fever/chills, abdominal pain. He has never had chest pain like this before, non-smoker. Does not think it is heartburn but does endorse he has intermittent heartburn. On arrival, troponins were normal and EKG without acute ischemic changes. He continued to have chest pain in spite of GI cocktail, morphine so Dr. Fernandes was consulted who took patient to the Fab[employer] Textile Factory Worker revealing nonocclusive CAD. Initial labs as follow: WBC 6.8, hemoglobin 14.2, platelets 237, positive D-dimer, sodium 141, potassium 4.4, creatinine 0.9, troponin negative. Chest x-ray negative for acute cardiopulmonary process or PE. Of note patient's blood pressure was 150 on presentation to ER. This morning he is resting comfortably in bed denies any further episodes of chest pain. Echocardiogram is pending. [facility] Disclaimer: The information contained in this section may have been updated after the patient was seen, as this information can be updated by other users. Medical History (Updated 07/11/24 @ 09:39 by Iris Barajas APRN) Kidney stone Surgical History History of cholecystectomy History of total right hip replacement History of total right knee replacement Family History Other No significant family history Social History Smoking Status: Never smoker alcohol intake: never current occupational status: retired Travel in the last 8 weeks: None Have you lived/traveled outside US in past 30 days?: No Contact w/someone who lives/traveled outside US past 30 days?: No Exposure to someone with infectious disease in past 14 days?: No Do you have a fever (greater than 100.4 F or 38 C)?: No Have you tested positive for COVID-19: No Exposed to someone with COVID-19 in past 14 days?: No Do you have a sore throat?: No Do you have a cough?: No Do you have any weakness?: No Do you have any diarrhea?: No Are you experiencing any unusual bleeding?: No Do you have any muscle aches/pain?: No Do you have any abdominal pain?: No Are you experiencing loss of taste or smell?: No Review of Systems Review of Systems Review of systems:: pertinent systems reviewed and negative unless documented below *Cardiovascular Comments: Chest pain Exam Data for Last 24 hours Vital signs and Labs for Last 24 Hours: Temp Pulse Resp BP Pulse Ox O2 Del Method 97.5 F L 54 L 20 111/61 93 L Room Air 07/11/24 08:00 07/11/24 08:00 07/11/24 08:00 07/11/24 08:00 07/11/24 08:00 07/11/24 08:00 Laboratory Results - last 24 hr 07/10/24 09:10: D-Dimer 0.75 H, Sodium 141, Potassium 4.4, Chloride 102, Carbon Dioxide 28, Anion Gap 15.4 H, BUN 17, Creatinine 0.90, Estimated Creat Clear 116, Estimated GFR 83, Est GFR ( Amer) 101, Glucose 122 H, Calcium 9.1, Total Bilirubin 0.8, AST 52, ALT 90 H, Alkaline Phosphatase 106, Troponin I < 0.01, Total Protein 8.4 H, Albumin 4.5, Globulin 3.9 H, Albumin/Globulin Ratio 1.2, Lipase 74 07/11/24 05:47: WBC 6.1, RBC 4.91, Hgb 13.2 L, Hct 42.0, MCV 85.5, MCH 26.9 L, MCHC 31.4 L, RDW 14.7, Plt Count 215, MPV 9.3, Neut % (Auto) 63.5, Lymph % (Auto) 24.3, [place] % (Auto) 8.4, Eos % (Auto) 3.0, Baso % (Auto) 0.3, Neut # (Auto) 3.8, Lymph # (Auto) 1.5, [place] # (Auto) 0.5, Eos # (Auto) 0.2, Baso # (Auto) 0.0, Sodium 140, Potassium 4.6, Chloride 104, Carbon Dioxide 30, Anion Gap 10.6, BUN 17, Creatinine 1.20 D, Estimated Creat Clear 58, Estimated GFR 60, Est GFR ( Amer) 72 D, Glucose 108 H, Calcium 9.0, Magnesium 2.1, Total Bilirubin 0.6, AST 51, ALT 83 H, Alkaline Phosphatase 83, Total Protein 7.2, Albumin 3.9 D, Globulin 3.3 H, Albumin/Globulin Ratio 1.2, Triglycerides 145, Cholesterol 158, LDL Cholesterol Direct 93.04 L, VLDL Cholesterol 29, HDL Cholesterol 34 L, Cholesterol/HDL Ratio 4.6 H, TSH 2.04 I & O for Last 24 hours: Intake & Output 07/08/24 07/09/24 07/10/24 07/11/24 23:59 23:59 23:59 23:59 Intake Total 360 / 360 480 / 480 Output Total 0 / 0 0 / 0 Balance 360 / 360 480 / 480 Weight 257 lb 9 oz 546 lb 11.2 oz Constitutional Constitutional: no acute distress *Routine Respiratory Exam Respiratory: Present CTA bilaterally and symmetric chest movement *Routine Cardiovascular Exam Cardiovascular: Present RRR, Normal S1 and Normal S2 *Routine Abdominal Exam Abdominal: Present soft and normoactive bowel sounds; Absent tenderness *Routine Extremities Exam Extremities: Present full ROM and normal capillary refill; Absent edema *Routine Skin Exam Skin: Present intact, dry and warm Detailed Neck Exam: Thyroids Thyroid: Absent bruit Meds Home Medications and Allergies Home Medications ?Medication ?Instructions ?Recorded ?Confirmed ?Type amlodipine 10 mg tablet 10 mg PO DAILY 08/05/17 07/10/24 History losartan 25 mg tablet 25 mg PO DAILY 08/05/17 07/10/24 History aspirin 81 mg capsule 81 mg PO DAILY 01/10/22 07/10/24 History diclofenac sodium 75 mg 75 mg PO BID 01/10/22 07/10/24 History tablet,delayed release potassium citrate 10 mEq (1,080 10 meq PO QID 07/10/24 07/10/24 History mg) tablet,extended release New Prescriptions to Start Prescriptions: Allergies Allergy/AdvReac Type Severity Reaction Status Date / Time No Known Allergies Allergy Verified 07/10/24 10:42 Assessment and Plan *Assessment and plan (1) Chest pain: Status: Acute Category: Medical Code(s): R07.9 - Chest pain, unspecified (2) HTN (hypertension): Status: Acute Category: Medical Code(s): I10 - Essential (primary) hypertension Plan Chest pain Status post left heart cath: without occlusive disease. No stents placed. Noted elevated LVEDP, and torturous coronary arteries possibly consistent with hypertensive heart disease. CTA negative for PE dissection or intrapulmonary findings Continue aspirin statin and beta-genaro Echocardiogram shows a normal LV systolic function with mild RV dilation but normal RV function, mild biatrial dilation and no significant valvular stenosis or regurg. Protonix per primary service History of hypertension Blood pressure was elevated on presentation to ER Continue beta-genaro and losartan. Add HCTZ 12.5 mg and stop amlodipine. CV summary 07/11/2024: Chest pain could be secondary to hypertension and a hyperdynamic ventricle. Please see medication adjustments. Echo shows preserved ejection fraction. Cardiology will sign off. Please have patient follow-up in cardiology clinic in 1 week for reevaluation. Cardiac meds: Aspirin 81 mg p.o. daily Metoprolol succinate 25 mg p.o. daily Losartan 25 mg p.o. daily Hydrochlorothiazide 12.5 mg p.o. daily
[2024-07-11 10:00] LABS: NT Pro Brain Natriuretic Pep. < 20.0 pg/mL (0-125)
[2024-07-11 12:00] VITALS: PULSE 50
--- NOTE | 2024-07-11 12:11 | P.DS_ITS ---
General Admission date:: 07/10/24 HPI HPI HPI: Kavon Valdivia is a 69-year-old male with a medical history significant for hypertension who presents with acute onset midsternal chest pain. 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 He denies radiation, shortness of breath, fever/chills, abdominal pain. He has never had chest pain like this before, non-smoker. Does not think it is heartburn but does endorse he has intermittent heartburn. On arrival, troponins were normal and EKG without acute ischemic changes. He continued to have chest pain in spite of GI cocktail, morphine so Dr. Fernandes was consulted who took patient to the Record Press Operator revealing nonocclusive CAD. Case discussed with ED provider and decision was made to admit patient for further chest pain workup. Hospital Course Hospital Course Hospital Course: Kavon Valdivia is a 69-year-old male with a medical history significant for hypertension who presents with acute onset midsternal chest pain. 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 He denies radiation, shortness of breath, fever/chills, abdominal pain. He has never had chest pain like this before, non-smoker. Does not think it is heartburn but does endorse he has intermittent heartburn. On arrival, troponins were normal and EKG without acute ischemic changes. He continued to have chest pain in spite of GI cocktail, morphine so Dr. Fernandes was consulted who took patient to the Record Press Operator revealing nonocclusive CAD. Case discussed with ED provider and decision was made to admit patient for further chest pain workup. #Chest pain #CAD ? S/p [facility]/12/2024 without occlusive disease. No stents placed. Noted elevated LVEDP, and torturous coronary arteries possibly consistent with hypertensive heart disease. ? CTA chest without dissection or PE or intrapulmonary findings. ? Started aspirin 81 mg, metoprolol succinate 25 mg, atorvastatin 40 mg, ? Started for possible GERD Protonix 40 mg. ? A1c 6.0% 93, LDL, TSH normal. ? ECHO unremarkable, preserved EF. ? Cardiology consulted, stopped amlodipine and started hydrochlorothiazide 12.5 mg for elevated LVEDP. #Hypertension ? Cardiology consulted, stopped amlodipine and started hydrochlorothiazide 12.5 mg for elevated LVEDP. ? Continue losartan 25 mg. Exam Data for Last 24 hours Vital signs and Labs for Last 24 Hours: Temp Pulse Resp BP Pulse Ox O2 Del Method 97.5 F L 54 L 20 111/61 93 L Room Air 07/11/24 08:00 07/11/24 08:00 07/11/24 08:00 07/11/24 08:00 07/11/24 08:00 07/11/24 11:00 Laboratory Results - last 24 hr 07/11/24 05:47: WBC 6.1, RBC 4.91, Hgb 13.2 L, Hct 42.0, MCV 85.5, MCH 26.9 L, MCHC 31.4 L, RDW 14.7, Plt Count 215, MPV 9.3, Neut % (Auto) 63.5, Lymph % (Auto) 24.3, [place] % (Auto) 8.4, Eos % (Auto) 3.0, Baso % (Auto) 0.3, Neut # (Auto) 3.8, Lymph # (Auto) 1.5, [place] # (Auto) 0.5, Eos # (Auto) 0.2, Baso # (Auto) 0.0, Sodium 140, Potassium 4.6, Chloride 104, Carbon Dioxide 30, Anion Gap 10.6, BUN 17, Creatinine 1.20 D, Estimated Creat Clear 58, Estimated GFR 60, Est GFR ( Amer) 72 D, Glucose 108 H, Hemoglobin A1c 6.0, Calcium 9.0, Magnesium 2.1, Total Bilirubin 0.6, AST 51, ALT 83 H, Alkaline Phosphatase 83, NT-Pro-B Natriuret Pep < 20.0, Total Protein 7.2, Albumin 3.9 D, Globulin 3.3 H, Albumin/Globulin Ratio 1.2, Triglycerides 145, Cholesterol 158, LDL Cholesterol Direct 93.04 L, VLDL Cholesterol 29, HDL Cholesterol 34 L, Cholesterol/HDL Ratio 4.6 H, TSH 2.04, Free T4 1.10 I & O for Last 24 hours: Intake & Output 07/08/24 07/09/24 07/10/24 07/11/24 23:59 23:59 23:59 23:59 Intake Total 360 / 360 480 / 480 Output Total 0 / 0 0 / 0 Balance 360 / 360 480 / 480 Weight 116.828 kg 247.979 kg Constitutional Constitutional: no acute distress and obese *Routine HEENT Exam Head: Present normocephalic Eye: Present EOMI and PERRL ENT: Present mucous membranes moist *Routine Neck Exam Neck: Present supple; Absent lymphadenopathy *Routine Respiratory Exam Respiratory: Present CTA bilaterally *Routine Cardiovascular Exam Cardiovascular: Present RRR *Routine Abdominal Exam Abdominal: Present soft and normoactive bowel sounds; Absent tenderness *Routine Extremities Exam Extremities: Absent cyanosis, clubbing or edema *Routine Skin Exam Skin: Present warm; Absent rash *Routine Neurological Exam Neurological: Present alert and oriented X3 Results Data Completed and Pending Labs on day of discharge: Labs from last 24 hours 07/11/24 05:47 WBC 6.1 RBC 4.91 Hgb 13.2 L Hct 42.0 MCV 85.5 MCH 26.9 L MCHC 31.4 L RDW 14.7 Plt Count 215 MPV 9.3 Neut % (Auto) 63.5 Lymph % (Auto) 24.3 [place] % (Auto) 8.4 Eos % (Auto) 3.0 Baso % (Auto) 0.3 Neut # (Auto) 3.8 Lymph # (Auto) 1.5 [place] # (Auto) 0.5 Eos # (Auto) 0.2 Baso # (Auto) 0.0 Sodium 140 Potassium 4.6 Chloride 104 Carbon Dioxide 30 Anion Gap 10.6 BUN 17 Creatinine 1.20 D Estimated Creat Clear 58 Estimated GFR 60 Est GFR ( Amer) 72 D Glucose 108 H Hemoglobin A1c 6.0 Calcium 9.0 Magnesium 2.1 Total Bilirubin 0.6 AST 51 ALT 83 H Alkaline Phosphatase 83 NT-Pro-B Natriuret Pep < 20.0 Total Protein 7.2 Albumin 3.9 D Globulin 3.3 H Albumin/Globulin Ratio 1.2 Triglycerides 145 Cholesterol 158 LDL Cholesterol Direct 93.04 L VLDL Cholesterol 29 HDL Cholesterol 34 L Cholesterol/HDL Ratio 4.6 H TSH 2.04 Free T4 1.10 DS: Diagnosis Discharge Diagnosis (1) Chest pain: Status: Acute Code(s): R07.9 - Chest pain, unspecified (2) HTN (hypertension): Status: Acute Code(s): I10 - Essential (primary) hypertension Meds Home Medications and Allergies Home Medications ?Medication ?Instructions ?Recorded ?Confirmed ?Type diclofenac sodium 75 mg 75 mg PO BID 01/10/22 07/16/24 History tablet,delayed release potassium citrate 10 mEq (1,080 10 meq PO QID 07/10/24 07/16/24 History mg) tablet,extended release hydrochlorothiazide 12.5 mg tablet 12.5 mg PO DAILY #30 tabs 07/16/24 07/16/24 Rx losartan 25 mg tablet 25 mg PO DAILY #30 tabs 07/16/24 07/16/24 Rx metoprolol succinate 25 mg 12.5 mg (1/2 x 25 mg) PO DAILY #30 07/16/24 07/16/24 Rx tablet,extended release 24 hr tabs pantoprazole 40 mg tablet,delayed 40 mg PO DAILY PRN GERD 30 days 07/16/24 07/16/24 Rx release #30 tabs New Prescriptions to Start Prescriptions: Allergies Allergy/AdvReac Type Severity Reaction Status Date / Time No Known Allergies Allergy Verified 07/16/24 14:08 Discharge Plan Disposition Patient Disposition: Home, Self-Care Condition: Fair Follow up Plan Follow up with: Iris Barajas APRN [Nurse Practitioner] - 07/16/24 2:00 pm Mio Nuñez MD [Referring] - 07/16/24 10:30 am Prescriptions/Medication Reconciliation: Continued diclofenac sodium 75 mg tablet,delayed release (DR/EC) 75 mg PO BID potassium citrate 10 mEq (1,080 mg) tablet extended release 10 meq PO QID Discontinued amlodipine 10 MG tablet 10 mg PO DAILY No Action pantoprazole 40 mg tablet,delayed release (DR/EC) 40 mg PO DAILY PRN (Reason: GERD) 30 Days Qty: 30 0RF Rx Instructions: Take on empty stomach. metoprolol succinate 25 mg tablet extended release 24 hr 12.5 mg PO DAILY Qty: 30 6RF hydrochlorothiazide 12.5 mg tablet 12.5 mg PO DAILY Qty: 30 6RF losartan 25 mg tablet 25 mg PO DAILY Qty: 30 6RF Problem Reconciliation Problems Reviewed?: Yes Patient Discharge Instructions Patient Instructions: Cardiac Catheterization, DI for Cardiac Catheterization, Surgical Site Infection, Cardiology Catheterization Patient / Family Discharge Instructions Print Language: Cam[place]onian Providers Primary Care Provider: Provider,Referral Admit Provider: Jamar Fernandes Attending Provider: Yon Zuniga
--- NOTE | 2024-07-14 10:09 | SW/DCPLANNER ---
Spoke with patient on the phone. Patient stated that he is doing well. Patient stated that he is aware of his appointments. Patient stated that he was able to get his medicine from clinic pharmacy when he was discharged. Patient stated that he has no concerns or questions at this time. Rhianna Carias
== END 2024-07-11 13:56 | disposition home or self-care (01) ==
LOC: ER 11:43 → CATHLAB 12:04 → 2ND 13:43
PROVIDERS: Admitting Provider Internal Medicine; Emergency Provider Emergency Medicine; Visit Provider Student in an Organized Health Care Education/Training Program
DX: I25.110 Atherosclerotic heart disease of native coronary artery with unstable angina pectoris (principal); R07.9 Chest pain, unspecified; I10 Essential (primary) hypertension; I77.1 Stricture of artery; Z79.899 Other long term (current) drug therapy
CPT/HCPCS: 36415; 71045; 71275; 80053; 80061; 83036; 83690; 83735; 83880; 84439; 84443; 84484; 85025; 85378; 93005; 93306; 93458; 99152; 99291; C1725; C1760; C1769; G0378; J1200; J1644; J1650; J2250; J2270; J2405; J3010; Q9967